=== PATIENT | female | born 1940 ===

== ENCOUNTER 2017-01-10 08:00 | Inpatient (IN) ==
[~2017-01-10 08:00] MED LIST: CefOXitin Inj 2 GM in Sodium Chloride 0.9% 100 ML IV ONE; LIDOCAINE W/ SODIUM BICARB 0.5 ML SYR SUBD ONE; Sodium Chloride 0.9% 250 ML IV ONE
[2017-01-10] MEDS ORDERED: fentaNYL Inj 250 MCG/5 ML VIAL ONE (08:07)
[2017-01-10] MEDS ORDERED: LIDOCAINE MPF 2% - 5 ML (20 MG/1 ML) ONE (08:07)
[2017-01-10] MEDS ORDERED: PROPOFOL 10 MG/1 ML (200 MG/20 ML) VIAL IV ONE (08:07)
[2017-01-10] MEDS ORDERED: MIDAZOLAM 5 MG/1 ML ONE (08:08)
[2017-01-10] MEDS ORDERED: KETAMINE 100 MG/1 ML - 5 ML ONE (08:08)
[2017-01-10] MEDS ORDERED: ROCURONIUM 10 MG/1 ML - 5 ML VIAL IVP ONE (08:10)
[2017-01-10] MEDS: Lactated Ringers 1,000 ML PRIMARY IV SCH ×2 (10:30→19:15)
[2017-01-10] MEDS ORDERED: BUPivacaine 0.5%/Epi Inj 50 ML VIAL ONE (10:48)
[2017-01-10] MEDS ORDERED: Sodium Chloride 0.9% 100 ML IV ONE (11:04)
[2017-01-10] MEDS ORDERED: ONDANSETRON 4 MG/2 ML VIAL ONE (11:46)
[2017-01-10] MEDS ORDERED: Acetaminophen 1000mg Inj 1,000 MG/100 ML VIAL IV ONE (11:46)
[2017-01-10] MEDS ORDERED: DEXAMETHASONE PF 10 MG/1 ML VIAL ONE (11:46)
[2017-01-10 11:48] LABS: BLOOD UREA NITROGEN 13 mg/dL (7-22); BUN/CREATININE RATIO 18.57 (6-20); SERUM ALBUMIN 3.8 g/dL (3.5-4.8)
[2017-01-10] MEDS ORDERED: LIDOCAINE HCL 2 % 10 ML JELLY URO-JECT TOPICAL ONE (12:25)
[2017-01-10] MEDS ORDERED: ePHEDrine Inj 50 MG/ML AMP ONE (12:27)
[2017-01-10] MEDS ORDERED: Lactated Ringers 1,000 ML PRIMARY IV ONE ×2 (12:36→13:21)
[2017-01-10] MEDS ORDERED: SUFENTANIL 50 MCG/1 ML ONE (12:50)
[2017-01-10] MEDS ORDERED: Sodium Chloride 0.9% vial 50 ML ONE (13:23)
[2017-01-10] MEDS ORDERED: BUPivacaine Liposome/PF (Exparel) Inj 20ml vial INFIL ONE (13:23)
[2017-01-10] MEDS ORDERED: SUGAMMADEX SODIUM 200 MG/2 ML VIAL IV ONE (13:56)
[2017-01-10] MEDS ORDERED: KETOROLAC 30 MG/1 ML VIAL ONE (13:57)
[2017-01-10] MEDS ORDERED: Nalbuphine Inj 20 MG/ML Ampule ONE (14:22)
[2017-01-10] MEDS ORDERED: NORMAL SALINE 10 ML SYRINGE FLUSH IVP PRN (14:36)
[2017-01-10] MEDS ORDERED: HYDROmorphone 2 MG/1 ML IVP PRN (14:36)
[2017-01-10] MEDS ORDERED: Prochlorperazine Edisylate Inj 10mg/2ml vial IVP PRN (14:36)
--- NOTE | 2017-01-10 14:37 | CRNA.PROGR ---
Anesthesia Time - - Start date: 01/10/17 End date: 01/10/17 - Procedure/Recovery Time Anesthesia : Time In: 12:09 Anesthesia : Time Out: 14:35 Anesthesia : Total Time: 146 - Total Anesthesia Time Total Anesthesia Time (minutes): 146 - Other Weight: 48.988 kg Height: 5 ft 1 in Body Mass Index (BMI): 20.4 Physical Status: P2 Anesthesia Type: General Anesthesia : ET
--- NOTE | 2017-01-10 14:38 | CRNA.PROGR ---
Anesthesia Recovery Phase I - Post Anesthesia Evaluation Patient's Condition on Arrival in Phase I: Stable Pain Level: 2
--- NOTE | 2017-01-10 15:14 | GEN.OPNOTE ---
Operative Note Surgery Date: 01/10/17 Preoperative Diagnosis: Sigmoid colon cancer Postoperative Diagnosis: Sigmoid colon cancer Procedure: Low anterior resection Surgeon: Nacho Pruitt MD It Business Analyst: Dustin Alcocer MD Anesthesia Provider: Macario Neri CRNA Anesthesia Type: General Estimated Blood Loss (mL): 300 Fluids: Lactated Ringer's 2400 mL. 2 g of Mefoxin given Pathology: Sigmoid colon sent Indications: Patient has biopsy-proven adenocarcinoma of the sigmoid colon. Measured 20 cm Findings: Patient had a circumferential cancer that was stuck to the right sidewall Operative Summary: Patient is brought in operative room. Placed supine position. Given general trach anesthesia. Then placed in dorsolithotomy position. Prepped draped sterile fashion. Only catheter was placed prior to prepping. Timeout performed per protocols. Midline skin incision was made through her previous midline incision. Hemostased electrocautery dissection to [place] tissue electrocautery anterior fascial sheath was opened electrocautery blunt dissection carried to the posterior sheath and the peritoneum and then the perineum was opened with electrocautery. We inspected there appeared to be no other abnormal pathology. Liver had no nodules. There is no abnormal pathology in the small bowel. There was a nodule seen within the epiploic fat of the left side of the colon. This was removed and sent as pathology. We then identified the lesion. There are take adhesions down of the right side of the colon to the sidewall of the abdominal wall. It is hard to tell this is previous surgery but did not appear to be direct extension of the tumor. It was not a good tissue plane. The right ureter was identified and make sure is out of harm's way. After mobilizing the colon we were able to then identify the ureter did not appear to be injured. We then divided the the sigmoid colon using a pursestring maker. Clamped the distal bowel and divided with a sharp dissection. We then clamped divided the mesenteric down to area below the tumor. This is definitely below the peritoneal reflection. We then I cleaned up the lateral margins and then the anterior margin stated mobilize the rectum. Then a TXA 60 staplers was used to divide the rectum. There we sized the colon to 33. A 31 EEA circumferential stapler was then used. The anvil was put into the proximal colon. Dr. Alcocer went below and dilated up the rectum and put the remainder the stapling device into the rectum. When trying to connect the rectum to the: We knows that the pursestring it came apart. I then freshened up the end of the proximal colon. Use a pursestring maker to reconstruct the pursestring. Put the anvil back and the proximal bowel and tied the pursestring. We connected the anvil to the stapler device. It was then fired and standard fashion. There are 2 complete rings. Did a sigmoidoscopy afterwards which showed good anastomosis and there was no air leak. We irrigated until clear. The midline fascia was closed with 0 Prolene continuous running suture. Skin reapproximated using vale. 240 mg of Exoprel was diluted with 50 mL of saline for total volume of 70 mL. This was infiltrated for postoperative pain control. Sterile dressings applied. Counts were correct. Patient transferred recovery room in stable condition Procedure Codes - Surgical Procedures Primary Surgical Procedure: [id number] : Colectomy, Coloproctostmy
[2017-01-10] MEDS ORDERED: CefOXitin Inj 2 GM in Sodium Chloride 0.9% 100 ML IV ONE (15:30)
[2017-01-10] MEDS ORDERED: ONDANSETRON 4 MG/2 ML VIAL IVP PRN (15:30)
[2017-01-10] MEDS: MORPHINE SULFATE 2 MG/1 ML IVP PRN (16:44)
[2017-01-10] MEDS: D5-1/2NS + 20mEq KCL 1,000 ML PRIMARY IV SCH (16:45)
[2017-01-10] MEDS: NORMAL SALINE 10 ML SYRINGE FLUSH IVP PRN (16:46)
--- NOTE | 2017-01-10 16:58 | CONSULT ---
Consult Note - Consult Consult Date: 01/10/17 Reason for Consult: PostOp Consulation : General Surgery Requesting Physician: Dr. Pruitt Primary Care Provider: MONICA HACKETT - History of Present Illness History of Present Illness: This is a 76 years old female with medical history significant for history of dementia, recently diagnosed with the adenocarcinoma of the sigmoid colon who came into the hospital to have surgery and she had low anterior resection done by Dr. Pruitt. The hospitalist service were consulted for management of medical issues. Patient is denying complaints. There is no abdominal pain, no chest pain, no shortness of breath, no nausea. Past Medical History Medical History: 1. History of dementia. 2. History of adenocarcinoma of the sigmoid colon status post resection Surgical History: History of hysterectomy and oophorectomy Family History: Reviewed an Not Pertinent Past Social History: Used to smoke, rarely drinks, no drugs. Lives in [place]. 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 Tobacco Use: Former Smoker In the Past 12 Months, Have Used or Abuse Any of the Following Substance: None Alcohol Use: Rarely Review of Systems - Review of Systems All Systems: Reviewed & No Additional Complaints Except as Stated Medication / Allergies Home Medications: Home Medications Medication Instructions Recorded Confirmed Type donepezil 10 mg tablet 10 mg PO QHS 12/18/16 01/10/17 History Lisinopril 10 mg PO PRN PRN 01/10/17 01/10/17 History Allergies/Adverse Reactions: Allergies 3 Allergy/AdvReac Type Severity Reaction Status Date / Time No Known Allergies Allergy Verified 01/10/17 06:43 Exam - Vitals Vital Signs: Vital Signs Temperature 98.0 F Pulse Rate 68 Respiratory Rate 18 Blood Pressure 148/94 Pulse Ox 93 Oxygen Flow Rate 1 Oxygen Delivery Method Nasal Cannula Height 5 ft 1 in Weight 108 lb - General General Appearance: No Acute Distress, Cooperative - Head Head Exam: Normal Inspection, Atraumatic - Eye Eye Exam: POSITIVE: Normal Appearance - ENT ENT Exam: POSITIVE: Normal Exam - Neck Neck Exam: Normal Inspection - Respiratory Respiratory Exam: POSITIVE: Clear to Auscultation - Bilaterally - Cardiovascular Cardiovascular Exam: POSITIVE: RRR - GI/Abdominal GI/Abdominal Exam: POSITIVE: Normal Bowel Sounds, Non Tender, Non Distended, Soft Additional GI/Abdominal Exam Details: Dressing applied to the incision site - Rectal Rectal Exam: POSITIVE: Deferred - External Exam: POSITIVE: Deferred Exam: POSITIVE: Deferred - Extremities Extremities Exam: POSITIVE: Normal Inspection - Back Back Exam: POSITIVE: Normal Inspection - Neurological Neurological Exam: POSITIVE: Alert, CN II-XII Intact, No Facial Droop, Speech Intact / Clear, Moves All Extremities Equally - Psychiatric Psychiatric Exam: POSITIVE: Normal Affect - Integumentary Integumentary Exam: POSITIVE: Normal Color Results - Labs CBC and BMP: 01/10/17 10:32 Assessment and Plan - Patient Problems (1) Adenocarcinoma of sigmoid colon Current Visit: No Status: Acute Comment: Status post anterior resection done today. Pain medication were already written for her. Anti-emetics also written for her. Per my discussion with Dr. Pruitt he will start her on heparin tomorrow for DVT prophylaxis. Code(s): C18.7 - Malignant neoplasm of sigmoid colon (2) History of dementia Current Visit: Yes Status: Chronic Comment: Continue Aricept Code(s): Z86.59 - Personal history of other mental and behavioral disorders
[2017-01-10] MEDS: Famotidine Inj 20 MG in Normal Saline Flush 10 ML IVP SCH (20:16)
[2017-01-10] MEDS: KETOROLAC 15 MG/1 ML VIAL IVP PRN (20:16)
[2017-01-10] MEDS: HEPARIN 5000 UNIT/1 ML SUBCUT SCH (20:16)
[2017-01-10] MEDS: CefOXitin Inj 2 GM in Sodium Chloride 0.9% 100 ML IV SCH (20:17)
[2017-01-10] MEDS: DONEPEZIL 5 MG TABLET PO SCH ×2 (20:17→21:51)
[2017-01-11] MEDS: D5-1/2NS + 20mEq KCL 1,000 ML PRIMARY IV SCH (02:50)
[2017-01-11] MEDS: MORPHINE SULFATE 2 MG/1 ML IVP PRN ×5 (02:53→18:55)
[2017-01-11] MEDS: NORMAL SALINE 10 ML SYRINGE FLUSH IVP PRN ×3 (02:55→08:35)
[2017-01-11] MEDS: HEPARIN 5000 UNIT/1 ML SUBCUT SCH ×3 (05:15→20:59)
[2017-01-11 06:43] LABS: BASOPHILS # (AUTO) 0 10*3/UL; BASOPHILS % (AUTO) 0 % (0-1); EOSINOPHILS # (AUTO) 0.01 10*3/UL; EOSINOPHILS % (AUTO) 0.1 % (0-8); Hematocrit [HCT] 31.9 % (37.0-47.0); Hemoglobin [HGB] 10.5 g/dL (12.0-16.0); LYMPHOCYTES # (AUTO) 1.62 10*3/uL; MEAN CORPUSCULAR HEMOGLOBIN 30.4 PG (27-31); MEAN CORPUSCULAR HGB CONC 32.9 g/dL (33-37); MEAN CORPUSCULAR VOLUME 92.5 FL (81-99); MEAN PLATELET VOLUME 9.9 FL (7.4-12.2); MONOCYTES # (AUTO) 0.73 10*3/UL (0.3-0.8); NEUTROPHILS # (AUTO) 5.69 10*3/UL; NEUTROPHILS % (AUTO) 70.5 % (50-80); RED BLOOD COUNT 3.45 10^6/uL (4.20-5.40)
[2017-01-11 07:18] LABS: PLATELET MORPHOLOGY COMMENT NORMAL MORPHOLOGY (NORM); RBC MORPHOLOGY COMMENT NORMAL MORPHOLOGY (NORM); WBC MORPHOLOGY COMMENT NORMAL MORPHOLOGY (NORM)
[2017-01-11] MEDS: Acetaminophen 1000mg Inj 1,000 MG/100 ML VIAL IV PRN (07:54)
[2017-01-11 07:57] LABS: BLOOD UREA NITROGEN 9 mg/dL (7-22)
[2017-01-11] MEDS: Famotidine Inj 20 MG in Normal Saline Flush 10 ML IVP SCH ×2 (08:35→20:54)
[2017-01-11] MEDS: CefOXitin Inj 2 GM in Sodium Chloride 0.9% 100 ML IV SCH (08:35)
--- NOTE | 2017-01-11 11:36 | PDOC(PROG) ---
Subjective Post Op Day: postop day 1 Pain Management: morphine, Toradol, Tylenol Franks Catheter: Yes Flatus: No Diet: NPO Ambulating: Yes Date and Time of Service: 01/11/2017 at 1135 Interval History: Patient states that she is doing fine having no problems. Objective : Data - Labs CBC and BMP: 01/11/17 05:55 01/11/17 05:55 - Vital Signs Vital Signs and I&O: Vital Signs - Last Taken Temperature 98.7 F 01/11/17 11:19 Pulse Rate 60 01/11/17 11:19 Respiratory Rate 18 01/11/17 11:19 Blood Pressure 96/64 01/11/17 11:19 Pulse Ox 98 01/11/17 11:19 Intake and Output (24hr x 4 totals) 01/09/17 01/10/17 01/11/17 01/12/17 05:59 05:59 05:59 05:59 Intake Total 3893 / 3893 Output Total 1350 / 1350 650 / 650 Balance 2543 / 2543 -650 / -650 Objective : Exam - General General Appearance: No Acute Distress, Cooperative - Head Head Exam: Normocephalic - Eye Eye Exam: PERRL, EOMI - Respiratory Respiratory Exam: Clear to Auscultation - Bilaterally, Breathing Non Labored - GI/Abdominal GI/Abdominal Exam: Normal Bowel Sounds, Non Tender, Non Distended, Soft Assessment and Plan - Patient Problems (1) Adenocarcinoma of sigmoid colon Current Visit: No Status: Acute Code(s): C18.7 - Malignant neoplasm of sigmoid colon (2) History of colectomy Current Visit: No Status: Acute Code(s): Z90.49 - Acquired absence of other specified parts of digestive tract - Assessment / Plan Additional Assessment/Plan Details: At present time patient is doing very well. Will stop IV antibiotics. Patient is to have the Franks catheter removed today. Also will start on clear liquid diet
--- NOTE | 2017-01-11 13:34 | PDOC(PROG) ---
Interval History: No complaints doing well Objective : Data - Labs CBC and BMP: 01/11/17 05:55 01/11/17 05:55 Objective : Exam - General General Appearance: Cooperative - Respiratory Respiratory Exam: Clear to Auscultation - Bilaterally, Breathing Non Labored, Normal To Percussion - Cardiovascular Cardiovascular Exam: RRR, No Murmur, No Clicks - GI/Abdominal GI/Abdominal Exam: Non Tender, Non Distended, Soft - Extremities Extremities Exam: No Clubbing Present, No Edema Present, No Cyanosis Present Assessment and Plan - Patient Problems (1) Hypertension Current Visit: Yes Status: Acute Comment: Stable continue current medication okay to be discharged home from the hospitalist standpoint Code(s): I10 - Essential (primary) hypertension (2) Adenocarcinoma of sigmoid colon Current Visit: No Status: Acute Comment: Deferred to general surgery Code(s): C18.7 - Malignant neoplasm of sigmoid colon
--- NOTE | 2017-01-11 15:17 | CRNA.PROGR ---
Anesthesia Note - Progress Notes Anesthesia Progress Note: Pt is lying in bed, currently comfortable, pt mental status is described as more confused today, and agitated if pain is not controlled. Otherwise pt is doing as expected. no residual issues from general anesthetic. Current VS are stable. Vital Signs - Last Taken Temperature 98.7 F 01/11/17 11:19 Pulse Rate 60 01/11/17 11:19 Respiratory Rate 18 01/11/17 11:19 Blood Pressure 96/64 01/11/17 11:19 Pulse Ox 98 01/11/17 11:19
[2017-01-11] MEDS: D5-1/2NS + 10mEq KCL 1,000 ML PRIMARY IV SCH (17:17)
[2017-01-11] MEDS: KETOROLAC 15 MG/1 ML VIAL IVP PRN (18:54)
[2017-01-11] MEDS: DONEPEZIL 5 MG TABLET PO SCH (20:59)
[2017-01-11] MEDS: KETOROLAC 15 MG/1 ML VIAL IVP SCH (21:00)
[2017-01-12] MEDS: KETOROLAC 15 MG/1 ML VIAL IVP SCH ×4 (01:08→20:09)
[2017-01-12] MEDS: MORPHINE SULFATE 2 MG/1 ML IVP PRN ×3 (01:08→13:04)
[2017-01-12] MEDS: HEPARIN 5000 UNIT/1 ML SUBCUT SCH ×3 (04:13→20:09)
[2017-01-12] MEDS: Famotidine Inj 20 MG in Normal Saline Flush 10 ML IVP SCH ×2 (09:18→20:10)
--- NOTE | 2017-01-12 10:11 | PDOC(PROG) ---
Subjective Post Op Day: postop day 2 Pain Management: Toradol, acetaminophen, local anesthetic Franks Catheter: No Diet: Clear Liquids Date and Time of Service: 01/12/2017 at 1010 Interval History: Patient states she's having no problems. Objective : Data - Labs CBC and BMP: 01/11/17 05:55 01/11/17 05:55 - Vital Signs Vital Signs and I&O: Vital Signs - Last Taken Temperature 98 F 01/12/17 09:03 Pulse Rate 80 01/12/17 09:03 Respiratory Rate 16 01/12/17 09:03 Blood Pressure 122/84 01/12/17 09:03 Pulse Ox 96 01/12/17 09:03 Intake and Output (24hr x 4 totals) 01/10/17 01/11/17 01/12/17 01/13/17 05:59 05:59 05:59 05:59 Intake Total 3893 / 3893 470 / 470 Output Total 1350 / 1350 1200 / 1200 Balance 2543 / 2543 -730 / -730 Objective : Exam - General General Appearance: No Acute Distress, Cooperative - Respiratory Respiratory Exam: Clear to Auscultation - Bilaterally, Breathing Non Labored - Cardiovascular Cardiovascular Exam: RRR - GI/Abdominal GI/Abdominal Exam: Normal Bowel Sounds, Non Tender, Non Distended, Soft Assessment and Plan - Patient Problems (1) Adenocarcinoma of sigmoid colon Current Visit: No Status: Acute Code(s): C18.7 - Malignant neoplasm of sigmoid colon (2) History of colectomy Current Visit: No Status: Acute Code(s): Z90.49 - Acquired absence of other specified parts of digestive tract - Assessment / Plan Additional Assessment/Plan Details: Overall think the patient is doing very well. We'll advance her diet to full liquid diet. Await return of bowel function. Will check a CBC base metabolic panel and magnesium in the a.m. A saline lock her IV.
--- NOTE | 2017-01-12 11:35 | PDOC(PROG) ---
Interval History: Doing well today patient looks much better more oriented Objective : Data - Labs CBC and BMP: 01/11/17 05:55 01/11/17 05:55 Objective : Exam - Respiratory Respiratory Exam: Clear to Auscultation - Bilaterally, Breathing Non Labored, Normal To Percussion - Cardiovascular Cardiovascular Exam: RRR, No Murmur, No Clicks Assessment and Plan - Patient Problems (1) Hypertension Current Visit: Yes Status: Acute Comment: Stable at present time we'll still hold the lisinopril Code(s): I10 - Essential (primary) hypertension (2) Adenocarcinoma of sigmoid colon Current Visit: No Status: Acute Code(s): C18.7 - Malignant neoplasm of sigmoid colon
[2017-01-12] MEDS: Acetaminophen 1000mg Inj 1,000 MG/100 ML VIAL IV PRN (16:35)
[2017-01-12] MEDS: DONEPEZIL 5 MG TABLET PO SCH (20:09)
[2017-01-13] MEDS: KETOROLAC 15 MG/1 ML VIAL IVP SCH ×2 (01:19→07:49)
[2017-01-13] MEDS: D5-1/2NS + 10mEq KCL 1,000 ML PRIMARY IV SCH (03:54)
[2017-01-13] MEDS: HEPARIN 5000 UNIT/1 ML SUBCUT SCH (05:20)
[2017-01-13 06:40] LABS: BASOPHILS # (AUTO) 0.02 10*3/UL; BASOPHILS % (AUTO) 0.5 % (0-1); EOSINOPHILS # (AUTO) 0.04 10*3/UL; Hematocrit [HCT] 30.2 % (37.0-47.0); Hemoglobin [HGB] 9.8 g/dL (12.0-16.0); LYMPHOCYTES # (AUTO) 0.92 10*3/uL; MEAN CORPUSCULAR HEMOGLOBIN 30.2 PG (27-31); MEAN CORPUSCULAR HGB CONC 32.5 g/dL (33-37); MEAN CORPUSCULAR VOLUME 92.9 FL (81-99); MEAN PLATELET VOLUME 9.3 FL (7.4-12.2); MONOCYTES # (AUTO) 0.27 10*3/UL (0.3-0.8); MONOCYTES % (AUTO) 6.7 % (5-15); NEUTROPHILS # (AUTO) 2.79 10*3/UL; NEUTROPHILS % (AUTO) 68.6 % (50-80); RED BLOOD COUNT 3.25 10^6/uL (4.20-5.40)
[2017-01-13 06:44] LABS: PLATELET MORPHOLOGY COMMENT NORMAL MORPHOLOGY (NORM); RBC MORPHOLOGY COMMENT NORMAL MORPHOLOGY (NORM); WBC MORPHOLOGY COMMENT NORMAL MORPHOLOGY (NORM)
[2017-01-13 06:53] LABS: BLOOD UREA NITROGEN 7 mg/dL (7-22); MAGNESIUM 1.8 mg/dL (1.6-2.4)
[2017-01-13] MEDS: Famotidine Inj 20 MG in Normal Saline Flush 10 ML IVP SCH (08:49)
--- NOTE | 2017-01-13 11:08 | PDOC(PROG) ---
Subjective Post Op Day: postoperative day 3 Flatus: No Diet: full liquid diet Date and Time of Service: January 13 2017 at 1110 Interval History: Patient states she's having no problems. Still has not had a bowel movement or passed flatus Objective : Data - Labs CBC and BMP: 01/13/17 06:30 01/13/17 06:30 - Vital Signs Vital Signs and I&O: Vital Signs - Last Taken Temperature 98.9 F 01/13/17 07:53 Pulse Rate 89 01/13/17 07:53 Respiratory Rate 18 01/13/17 07:53 Blood Pressure 131/92 01/13/17 07:53 Pulse Ox 92 01/13/17 07:53 Intake and Output (24hr x 4 totals) 01/11/17 01/12/17 01/13/17 01/14/17 05:59 05:59 05:59 04:59 Intake Total 3893 / 3893 470 / 470 1120 / 1120 120 / 120 Output Total 1350 / 1350 1200 / 1200 Balance 2543 / 2543 -730 / -730 1120 / 1120 120 / 120 Objective : Exam - General General Appearance: No Acute Distress, Cooperative - Neck Neck Exam: Full ROM - Respiratory Respiratory Exam: Clear to Auscultation - Bilaterally, Breathing Non Labored - Cardiovascular Cardiovascular Exam: RRR - GI/Abdominal GI/Abdominal Exam: Normal Bowel Sounds, Non Tender, Non Distended, Soft Assessment and Plan - Patient Problems (1) Adenocarcinoma of sigmoid colon Current Visit: No Status: Acute Code(s): C18.7 - Malignant neoplasm of sigmoid colon (2) History of colectomy Current Visit: No Status: Acute Code(s): Z90.49 - Acquired absence of other specified parts of digestive tract - Assessment / Plan Additional Assessment/Plan Details: Overall patient is doing very well. She is tolerating full liquid diet. She still has bowel sounds but has not started passing flatus are having a bowel movement. Await return of bowel function. Will switch over to oral pain medication. Her platelets are started declined therefore she I don't think she needs be on heparin anymore continue SCDs.
[2017-01-13] MEDS: HYDROcodone-APAP 5 MG -325 MG TABLET PO PRN ×3 (11:39→22:55)
[2017-01-13] MEDS: DONEPEZIL 5 MG TABLET PO SCH (20:48)
[2017-01-13] MEDS: MORPHINE SULFATE 2 MG/1 ML IVP PRN (23:35)
[2017-01-14] MEDS: MORPHINE SULFATE 2 MG/1 ML IVP PRN (06:40)
[2017-01-14] MEDS: HYDROcodone-APAP 5 MG -325 MG TABLET PO PRN ×4 (06:41→23:15)
[2017-01-14] MEDS: NORMAL SALINE 10 ML SYRINGE FLUSH IVP PRN (06:41)
[2017-01-14 06:46] LABS: Hemoglobin [HGB] 10.3 g/dL (12.0-16.0); MEAN CORPUSCULAR HEMOGLOBIN 30.2 PG (27-31); MEAN CORPUSCULAR HGB CONC 33.2 g/dL (33-37); MEAN CORPUSCULAR VOLUME 90.9 FL (81-99); RED BLOOD COUNT 3.41 10^6/uL (4.20-5.40)
[2017-01-14 07:00] LABS: BLOOD UREA NITROGEN 11 mg/dL (7-22)
--- NOTE | 2017-01-14 08:00 | PDOC(PROG) ---
Subjective Post Op Day: postop day 4 Pain Management: PO Franks Catheter: No Flatus: Yes Diet: Regular Date and Time of Service: 01/14/2017 at 9 AM Interval History: Patient has no complaints today. Nurses report that she passed flatus yesterday. Patient is tolerating diet. Objective : Data - Labs CBC and BMP: 01/14/17 06:40 01/14/17 06:40 - Vital Signs Vital Signs and I&O: Vital Signs - Last Taken Temperature 97.9 F 01/14/17 06:43 Pulse Rate 88 01/14/17 06:43 Respiratory Rate 16 01/14/17 06:50 Blood Pressure 128/83 01/14/17 06:43 Pulse Ox 94 01/14/17 06:43 Intake and Output (24hr x 4 totals) 01/12/17 01/13/17 01/14/17 01/15/17 06:59 06:59 05:59 05:59 Intake Total Output Total 250 / 250 Balance -250 / -250 Objective : Exam - General General Appearance: No Acute Distress - Respiratory Respiratory Exam: Clear to Auscultation - Bilaterally, Breathing Non Labored - GI/Abdominal GI/Abdominal Exam: Normal Bowel Sounds, Non Tender, Non Distended, Soft ( Incision is clean and dry) Assessment and Plan - Patient Problems (1) Adenocarcinoma of sigmoid colon Current Visit: No Status: Acute Code(s): C18.7 - Malignant neoplasm of sigmoid colon (2) History of colectomy Current Visit: No Status: Acute Code(s): Z90.49 - Acquired absence of other specified parts of digestive tract - Assessment / Plan Additional Assessment/Plan Details: Overall patient is doing very well. Will advance diet to regular diet. Platelets have corrected since stopping heparin. Continues SCDs. Weight return of bowel function before patient is discharged home.
[2017-01-14] MEDS: DONEPEZIL 5 MG TABLET PO SCH (20:35)
[2017-01-15] MEDS: HYDROcodone-APAP 5 MG -325 MG TABLET PO PRN (04:46)
[2017-01-15 08:11] VITALS: BP 118/81; RESP 17; TEMP 97.4; O2SAT 95
--- NOTE | 2017-01-15 10:09 | DCSUMMARY ---
Discharge Summary Admit Date: 01/10/17 Discharge Date: 01/15/17 Admitting Diagnosis: sigmoid colon cancer Discharge Diagnosis: Sigmoid colon cancer Primary Surgery and Date: 01/10/2017 patient when the low anterior resection Hospital Course: Patient underwent low anterior resection 01/10/2017 postoperatively she did very well. She was advanced on her diet. She had a bowel movement on January 12. Her diet was advanced on the and she is able to be discharged on the . Exam - Vitals Vital Signs: Vital Signs Temperature 97.4 F Temperature Source Temporal Artery Scan Pulse Rate [Apical] 88 Pulse Rate [Pulse Oximeter] 79 Pulse Rate 60 Respiratory Rate 17 Blood Pressure [Left Arm] 118/81 Blood Pressure 148/94 Pulse Ox 95 Oxygen Flow Rate 1 Oxygen Delivery Method Room Air Height 5 ft 1 in Weight 105 lb 6.4 oz - General General Appearance: No Acute Distress, Cooperative - Neck Neck Exam: Normal Inspection - Respiratory Respiratory Exam: POSITIVE: Clear to Auscultation - Bilaterally, Breathing Non Labored - Cardiovascular Cardiovascular Exam: POSITIVE: RRR - GI/Abdominal GI/Abdominal Exam: POSITIVE: Normal Bowel Sounds, Non Tender, Non Distended, Soft Patient Problems - Patient Problem List (1) Adenocarcinoma of sigmoid colon Current Visit: No Status: Acute Code(s): C18.7 - Malignant neoplasm of sigmoid colon Category: Medical (2) History of colectomy Current Visit: No Status: Acute Code(s): Z90.49 - Acquired absence of other specified parts of digestive tract Category: Surgical
== END 2017-01-15 10:43 | disposition home or self-care (01) | DRG 331 ==
LOC: OPS 09:47 → EDSTATUS 11:45 → MED/SURG 15:42
PROVIDERS: ADMIT Surgery; ATTEND Surgery

== ENCOUNTER 2018-03-21 12:42 | Inpatient (IN) ==
[2018-03-21] MEDS ORDERED: Sodium Chloride 0.9% 1,000 ML PRIMARY IV ONE (14:04)
[2018-03-21 14:23] LABS: BASOPHILS # (AUTO) 0.02 10*3/UL; BASOPHILS % (AUTO) 0.2 % (0-1); EOSINOPHILS % (AUTO) 3.4 % (0-8); Hematocrit [HCT] 30.3 % (37.0-47.0); Hemoglobin [HGB] 8.9 g/dL (12.0-16.0); MEAN CORPUSCULAR HEMOGLOBIN 20.6 PG (27-31); MEAN CORPUSCULAR HGB CONC 29.4 g/dL (33-37); MEAN CORPUSCULAR VOLUME 70.3 FL (81-99); MONOCYTES # (AUTO) 0.67 10*3/UL (0.3-0.8); MONOCYTES % (AUTO) 7.7 % (5-15); NEUTROPHILS # (AUTO) 5.82 10*3/UL; NEUTROPHILS % (AUTO) 66.7 % (50-80); RED BLOOD COUNT 4.31 10^6/uL (4.20-5.40)
[2018-03-21 14:28] LABS: PLATELET MORPHOLOGY COMMENT NORMAL MORPHOLOGY (NORM); RBC MORPHOLOGY COMMENT NORMAL MORPHOLOGY (NORM); WBC MORPHOLOGY COMMENT NORMAL MORPHOLOGY (NORM)
[2018-03-21 14:35] LABS: BLOOD UREA NITROGEN 14 mg/dL (7-22); SERUM ALBUMIN 3.5 g/dL (3.5-4.8)
[2018-03-21 14:41] LABS: BILIRUBIN,URINE SMALL (NEG); CLARITY,URINE CLEAR (CLEAR); COLOR,URINE YELLOW (Y); GLUCOSE, URINE (UA) NEGATIVE (NEG); OCCULT BLOOD,URINE NEGATIVE (NEG); PH,URINE 5.5 (5.0-8.5); PROTEIN,URINE TRACE mg/dl (NEG)
[2018-03-21 14:44] LABS: URINE SAMPLE TYPE VOIDED SPECIMEN; URINE SPECIFIC GRAVITY - MAN 1.029
--- NOTE | 2018-03-21 15:17 | PDOC ---
General Adult HPI - General Chief Complaint: Abdomen Pain Stated Complaint: stomach pain Date Seen by Provider: 03/21/18 Time Seen by Provider: 13:50 Source: POSITIVE: Patient Exam Limitations: POSITIVE: Other (Patient does have some underlying dementia and is a poor historian) Nurse's Notes Reviewed & Considered: Yes - History of Present Illness Initial Comment: The patient is a 77-year-old female who is brought to the emergency department by her son. Both her and her son state they don't know exactly why the patient is here. Apparently the patient has had some increased weakness and possibly some increased confusion over the past several weeks which has been worsening the past couple of days. She also apparently has been feeling cold the past couple of days. She does have a history of underlying dementia. She had seen her primary care provider yesterday in [place]. Her rating clerk felt like she was worse today and that was the reason for bringing her here to the emergency department. The patient states that there is nothing wrong with her. She does have a history of colon cancer which was resected in [address] Pruitt. It does not sound like she has had any significant follow-up since then although the patient told me that her colon cancer was "a long time ago, like around 06". The patient denies any current headache, chest pain, cough or shortness of breath, abdominal pain, recent vomiting or diarrhea, urinary symptoms. Have you received a tetanus shot in the past 10 years?: No - Patient Home Medications Home Medications: Home Medications donepezil 5 mg tablet 5 mg PO BID tab 05/14/17 - Patient Allergies Allergies/Adverse Reactions: Allergies Allergy/AdvReac Type Severity Reaction Status Date / Time No Known Allergies Allergy Verified 03/21/18 13:41 Past Medical History - heen HEENT History: Dentures/Partials Cardiovascular History: Hypertension Additional Cardiovasular History: 01/09/17 Pt had some high blood pressure in morning, caregiver call PCP and was told to give one 10mg Lisinopril. B/P returned to normal and good today Respiratory History: Denies History Gastrointestinal History: Other (please comment) Additional Gastrointestinal History: Colon CA Genitourinary History: Denies History Endocrine History: Denies History Musculoskeletal History: Denies History Prosthesis or Implant: No Neurological History: Dementia, Motion Sickness, Frequent Headaches Additional Neurological History: MEMORY LOSS Blood Disorders: Denies History Psychiatric History: Denies History History of Sexually Transmitted Diseases: No Female Reproductive History: Hysterectomy Cancer History: Colon In Past Year Been Physically Harmed or Verbally Threatened: No History of MDRO: No History of Other Communicable Diseases: No Tobacco Use: Former Smoker In the Past 12 Months, Have Used or Abuse Any Substance: None Previous Surgical History: Yes Type / Date of Surgery: HYST/Colonoscopy/COLECTOMY Anesthesia Reactions: No Malignant Hyperthermia: No Significant Family History: No pertinent family hx Past Medical History Reviewed: Reviewed - No Changes ROS - Limitations ROS Limitations: No Limitations Constitution: REPORTS: Chills Cardiovascular: DENIES: Chest Pain Respiratory: DENIES: Cough Non Productive, Cough Productive, Shortness Of Breath Neurological: DENIES: Headache, Numbness, Weakness Gastrointestinal: REPORTS: Constipation. DENIES: Abdominal Pain, Nausea, Vomitting, Diarrhea, Black Stools, Bloody Stools Musculoskeletal: REPORTS: Denies MS Symptoms Genitourinary: DENIES: Dysuria, Flank Pain Eyes: REPORTS: Denies Symptoms ENT: REPORTS: Denies Symptoms Skin: DENIES: Rash General Adult Exam - General Appearance General Appearance: POSITIVE: Alert, Cooperative, No Acute Distress - HEENT HEENT: POSITIVE: Head Inspection Nml, Eyes Inspection Nml, Ears Inspection Nml, Nose Inspection Nml, Pharynx Inspect. Nml - Neck Neck: POSITIVE: Normal Inspection. NEGATIVE: Lymphadenopathy - Respiratory Respiratory: POSITIVE: No Respiratory Distress, Breath Sounds Normal - Cardiovascular Cardiovascular: POSITIVE: Regular Rate & Rhythm, No Murmur - Abdomen Abdomen: Soft: (All Quadrants), Denies Tenderness: (All Quadrants), No Guarding: (All Quadrants), No Palpable Pulse: (All Quadrants), No [place]pabale Mass: (All Quadrants), No Distention: (All Quadrants) - Skin Skin: POSITIVE: Normal Color, No Rash - Extremities Extremity: Normal ROM: (All Extremities), Normal Inspection: (All Extremities) - Neurological / Psychological Neurological: POSITIVE: Oriented X3, operations technician Normal As Tested, Motor Normal, Sensation Normal General Adult Progress - Results Reviewed by me Xrays/CTs/US Reviewed by me: Yes Discussed with Radiologist: Yes Radiology Findings: CT scan of the abdomen and pelvis with IV contrast reveals some borderline wall thickening in the rectum with some questionable associated inflammatory change per radiologist. Lab Results Reviewed by Me: Yes Lab Results:: Laboratory Results 03/21/18 03/21/18 03/21/18 14:20 14:20 14:20 WBC 8.73 RBC 4.31 Hgb 8.9 L Hct 30.3 L MCV 70.3 L MCH 20.6 L MCHC 29.4 L RDW Std Deviation 45.7 RDW Coeff of Nanda 18.4 H Plt Count 307 MPV 9.0 Immature Gran % (Auto) 0.2 Neut % (Auto) 66.7 Lymph % (Auto) 21.8 [place] % (Auto) 7.7 Eos % (Auto) 3.4 Baso % (Auto) 0.2 Immature Gran # (Auto) 0.02 Neut # (Auto) 5.82 Lymph # (Auto) 1.90 [place] # (Auto) 0.67 Eos # (Auto) 0.30 Baso # (Auto) 0.02 WBC Morphology Comment Normal morphology Plt Morphology Comment Normal morphology RBC Morph Comment Normal morphology Sodium Potassium Chloride Carbon Dioxide Anion Gap BUN Creatinine BUN/Creatinine Ratio Glucose Calculated Osmolality Lactic Acid 1.1 Calcium Magnesium 2.3 Total Bilirubin AST ALT Alkaline Phosphatase C-Reactive Protein 1.7 H Total Protein Albumin Globulin Albumin/Globulin Ratio TSH Ur Collection Type Urine Color Urine Clarity Urine pH Ur Specific [place] U Specif Grav (Refrac) Urine Protein Urine Glucose (UA) Urine Ketones Urine Occult Blood Urine Nitrate Urine Bilirubin Urine Urobilinogen Ur Leukocyte Esterase Ur Culture Indicated? Blood Type Antibody Screen Crossmatch 03/21/18 03/21/18 03/21/18 14:20 14:35 15:15 WBC RBC Hgb Hct MCV MCH MCHC RDW Std Deviation RDW Coeff of Nanda Plt Count MPV Immature Gran % (Auto) Neut % (Auto) Lymph % (Auto) [place] % (Auto) Eos % (Auto) Baso % (Auto) Immature Gran # (Auto) Neut # (Auto) Lymph # (Auto) [place] # (Auto) Eos # (Auto) Baso # (Auto) WBC Morphology Comment Plt Morphology Comment RBC Morph Comment Sodium 138 Potassium 3.5 L Chloride 107 Carbon Dioxide 21 L Anion Gap 10 BUN 14 Creatinine 0.8 BUN/Creatinine Ratio 17.50 Glucose 101 Calculated Osmolality 286.0 Lactic Acid Calcium 8.1 L Magnesium Total Bilirubin 0.8 AST 17 ALT 15 Alkaline Phosphatase 75 C-Reactive Protein Total Protein 6.0 L Albumin 3.5 Globulin 2.5 Albumin/Globulin Ratio 1.40 TSH 1.24 Ur Collection Type Voided specimen Urine Color Yellow Urine Clarity Clear Urine pH 5.5 Ur Specific [place] >=1.030 U Specif Grav (Refrac) 1.029 Urine Protein Trace Urine Glucose (UA) Negative Urine Ketones Trace A Urine Occult Blood Negative Urine Nitrate Negative Urine Bilirubin Small Urine Urobilinogen 2.0 Ur Leukocyte Esterase Negative Ur Culture Indicated? Culture not set Blood Type Antibody Screen Crossmatch 03/21/18 15:49 WBC RBC Hgb Hct MCV MCH MCHC RDW Std Deviation RDW Coeff of Nanda Plt Count MPV Immature Gran % (Auto) Neut % (Auto) Lymph % (Auto) [place] % (Auto) Eos % (Auto) Baso % (Auto) Immature Gran # (Auto) Neut # (Auto) Lymph # (Auto) [place] # (Auto) Eos # (Auto) Baso # (Auto) WBC Morphology Comment Plt Morphology Comment RBC Morph Comment Sodium Potassium Chloride Carbon Dioxide Anion Gap BUN Creatinine BUN/Creatinine Ratio Glucose Calculated Osmolality Lactic Acid Calcium Magnesium Total Bilirubin AST ALT Alkaline Phosphatase C-Reactive Protein Total Protein Albumin Globulin Albumin/Globulin Ratio TSH Ur Collection Type Urine Color Urine Clarity Urine pH Ur Specific [place] U Specif Grav (Refrac) Urine Protein Urine Glucose (UA) Urine Ketones Urine Occult Blood Urine Nitrate Urine Bilirubin Urine Urobilinogen Ur Leukocyte Esterase Ur Culture Indicated? Blood Type O POSITIVE Antibody Screen Negative Crossmatch See Detail CBC and BMP: 03/21/18 21:52 03/21/18 14:20 - Patient's Progress MDM / ED Course: On arrival to the emergency department she was running a low-grade fever with a temperature of 100.4. In addition her blood pressure was on the low side at 85 systolic. She was not tachycardic. Because of this however an IV was established and she did receive 1 L bolus of normal saline, blood cultures and lactate were drawn with initial IV start and her lactate was normal. Blood work reveals a normal white count and mildly elevated CRP at 1.7. Urinalysis shows concentrated urine with small amount of ketones with no obvious sign of infection. The patient is anemic with a hemoglobin of 8.9. The last time it had been checked here was in January 2017 at which time it was 10.3. This was around the time of her colon surgery. Shortly after arrival here her blood pressure at one point dipped to 75 systolic. After administration of fluids her pressure came up into the upper 90s to 100 systolic. Rectal exam was performed and revealed an external hemorrhoid and heme positive stool. I did discuss the patient with Dr. Kincaid who recommended admission to the hospitalist service and he stated he would consult on the patient. He did recommend sending a CEA level secondary to her history of colon cancer. I discussed the patient with Dr. Mendoza and he recommended CT the abdomen and pelvis. This was performed and show some borderline thickening of the rectum with some questionable perirectal inflammatory change, no other acute findings per radiologist. This was discussed with Dr. Mendoza. The patient will likely be treated for possible diverticular disease and will be monitored here in the hospital. - Consult Counseled: POSITIVE: Patient, Family, RE: Lab Results, RE: Radiology Results, RE: DX Patient Care Time - Estimated PCT Patient Care Time (In Minutes): 45 Vital Signs - VS Reviewed Vital Signs Reviewed: Yes Discharge Clinical Impression: Guaiac + stool, Adenocarcinoma of sigmoid colon, History of dementia, Cancer of sigmoid colon Anemia Qualifiers: Anemia type: unspecified type Qualified Code(s): D64.9 - Anemia, unspecified Hypotension Qualifiers: Hypotension type: unspecified hypotension type Qualified Code(s): I95.9 - Hypotension, unspecified Discharge Disposition: Admit to Inpatient Condition: Fair Date Decision to Admit to Inpatient: 03/22/18 Time Decision to Admit to Inpatient: 18:00
[2018-03-21] MEDS ORDERED: PANTOPRAZOLE IV 40 MG VIAL IVP ONE (15:19)
--- NOTE | 2018-03-21 16:05 | DI ---
XR CXR 1VW 03/21/2018 3:11 PM HISTORY: [facility] [place]fever Comparison: None. Findings: A single AP view of the chest demonstrates normal aeration without focal consolidation. The re is no pneumothorax or pleural effusion. The cardiomediastinal silhouette is normal in size with at heromatous calcifications in the arch of the tortuous thoracic aorta. The osseous structures are nota ble for degenerative changes of the left acromioclavicular joint and spine. Impression: No radiographic evidence of acute cardiopulmonary process.
--- NOTE | 2018-03-21 17:45 | DI ---
CT Abdomen/Pelvis W Contrast 03/21/2018 4:11 PM History: [facility] [place] ^anemia, fever Comparison: 11/21/2016. Technique: Imaging was performed with a multi-detector CT scanner. Data acquisition was obtained from the dome of the diaphragm through the pubic symphysis without oral contrast and after the uneventful administration of 75 mL of Isovue intravenous contrast material. Multiplanar reformations were perfo rmed. Findings: There is bibasilar atelectasis versus scar. There are 4 and 5 mm pulmonary nodules in the right middl e lobe. There is a subcentimeter hypoattenuating lesion in the upper pole of the left kidney, too small to ch aracterize. There is normal CT appearance of the liver, gallbladder, adrenal glands, spleen, right ki dney, and pancreas. There is a surgical anastomosis at the level of the rectosigmoid junction. Border line wall thickening of the incompletely distended rectum beyond the level of the anastomosis is note d. There may be perirectal fat stranding. There is no free intraperitoneal air or fluid. No abdominop elvic lymphadenopathy is present. Vascular structures are intact with scattered atheromatous aortic a nd coronary artery calcifications. The uterus is absent. The adnexa are unremarkable, though better e valuated with pelvic ultrasound. There is a small fat-containing left inguinal hernia. There is multilevel degenerative disc disease with grade 1 anterolisthesis of L4 on L5. There is newman sitional lumbar anatomy with bilateral L5/S1 pseudoarthroses. Impression: 1. There is borderline thickening of the wall of the incompletely distended rectum with questionable perirectal fat stranding beyond the level of the surgical anastomosis. There is a nonspecific finding that could represent an infectious or inflammatory etiology in the correct clinical setting. Followu p to resolution is recommended. 2. Subcentimeter hypoattenuating lesion in the upper pole of the left kidney, too small to characteri ze.. 3. Right middle lobe pulmonary nodules, the largest measuring 5 mm. Fleischner Society 2017 guideline s for management of incidentally detected pulmonary nodules is as follows: Multiple solid lung nodules less than 6 mm: Low risk: No routine follow-up. High risk: Optional CT at 12 months.
[2018-03-21] MEDS ORDERED: Sodium Chloride 0.9% 2,000 ML PRIMARY IV ONE (18:18)
[2018-03-21] MEDS ORDERED: ONDANSETRON 4 MG/2 ML VIAL IV PRN (18:18)
[2018-03-21] MEDS ORDERED: LIDOCAINE W/ SODIUM BICARB 0.5 ML SYR SUBD PRN (18:18)
--- NOTE | 2018-03-21 18:47 | PDOC ---
HPI - History of Present Illness Date of Service: 03/21/18 Time of Service: 18:42 History of Present Illness: This very pleasant but advanced dementia 77-year-old female who presents completely by her son today from [place], [place]. Apparently, at her assisted living, the patient was found to be ill today. Details of that illness and the symptoms are not known and the patient has no memory or recall of those events. The patient's son stated that the caregivers at the assisted living called him and told him that the patient needed evaluation for being ill and that she had had some anemia discovered yesterday on some routine blood work. Patient came into the emergency room for evaluation, was found to have a Hemoccult positive stool, and was sent here for further evaluation. Upon arrival here, patient had a temperature 100.5, was hypotensive and required IV fluids of which she responded to systolics are now in the 110s. The patient has no symptoms of co ugh, nausea or vomiting, diarrhea, or other infectious symptoms. She does feel chilled. Blood cultures were drawn in the emergency room and are pending. Chest x-ray was negative for pneumonia. Urinalysis was negative for urinary tract infection. On my exam she did not have any meningeal signs. She was minimally tender on abdominal exam which may suggest possible issues there, and CT scan of the abdomen and pelvis with contrast showed some mild perirectal anastomotic stranding that may or may not be goodwill representative of an inflammatory process. Past Medical History Medical History: 1. Alzheimer's dementia. 2. History of adenocarcinoma of the sigmoid colon status post resection Surgical History: History of hysterectomy and oophorectomy Family History: Reviewed an Not Pertinent Pertinent Family History: Patient does not recall how her parents passed on. History compromised by dementia Past Social History: Used to smoke, rarely drinks, no drugs. Lives in [place]. 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 Her son is her power of attorn halley. Tobacco Use: Former Smoker In the Past 12 Months, Have Used or Abuse Any of the Following Substance: None Alcohol Use: Rarely Medication / Allergies Home Medications: Home Medications Medication Instructions Recorded Confirmed Type donepezil 5 mg tablet 5 mg PO BID tab 05/14/17 03/21/18 History Allergies/Adverse Reactions: Allergies Allergy/AdvReac Type Severity Reaction Status Date / Time No Known Allergies Allergy Verified 03/21/18 13:41 Review of Systems - Review of Systems ROS Unobtainable: Due to Mental Status (I cannot obtain an adequate review syst ems due to dementia) Exam - Vitals Vital Signs: Vital Signs Temperature 100.5 F Temperature Source Temporal Artery Scan Pulse Rate [Pulse Oximeter] 77 Respiratory Rate 12 Blood Pressure [Left Arm] 85/69 Pulse Ox 96 Oxygen Delivery Method Room Air Height 5 ft 0.5 in Weight 135 lb - General General Appearance: No Acute Distress, Cooperative - Head Head Exam: Normal Inspection, Normocephalic, Atraumatic - Eye Eye Exam: POSITIVE: No Scleral Icterus - ENT ENT Exam: POSITIVE: Mucous Membranes Moist - Neck Neck Exam: Normal Inspection, No Tenderness, No Lymphadenopathy, No Thyromegaly, JVP is not Raised - Respiratory Respiratory Exam: POSITIVE: Clear to Auscultation - Bilaterally, Breathing Non Labored, Normal to Percussion and Palpation - Cardiovascular Cardiovascular Exam: POSITIVE: RRR, No Murmur, No Clicks, No Gallops, No Rubs, No JVD - GI/Abdominal GI/Abdominal Exam: POSITIVE: Normal Bowel Sounds, Non Tender (The patient may have had mild tenderness with palpation but really does not localize it very well at all.), Non Distended, Soft - Rectal Rectal Exam: POSITIVE: Deferred (This was done in the emergency room I am told by the patient's son.) - External Exam: POSITIVE: Deferred Exam: POSITIVE: Deferred - Extremities Extremities Exam: POSITIVE: No Clubbing Present, No Edema Present, No Cyanosis Present - Back Back Exam: POSITIVE: No CVA Tenderness - Neurological Neurological Exam: POSITIVE: Alert, No Facial Droop, Speech Intact / Clear, Mov es All Extremities Equally, Altered (Oriented to person. Confused about place, time, and situation) - Psychiatric Psychiatric Exam: POSITIVE: Normal Affect, Normal Mood - Integumentary Integumentary Exam: POSITIVE: Normal Color, Warm, Dry, Intact Results - Labs CBC and BMP: 03/21/18 14:20 03/21/18 14:20 Additional Lab Results: Laboratory Results 03/21/18 03/21/18 03/21/18 14:20 14:20 14:20 WBC 8.73 RBC 4.31 Hgb 8.9 L Hct 30.3 L MCV 70.3 L MCH 20.6 L MCHC 29.4 L RDW Std Deviation 45.7 RDW Coeff of Nanda 18.4 H Plt Count 307 MPV 9.0 Immature Gran % (Auto) 0.2 Neut % (Auto) 66.7 Lymph % (Auto) 21.8 Rogers % (Auto) 7.7 Eos % (Auto) 3.4 Baso % (Auto) 0.2 Immature Gran # (Auto) 0.02 Neut # (Auto) 5.82 Lymph # (Auto) 1.90 Rogers # (Auto) 0.67 Eos # (Auto) 0.30 Baso # (Auto) 0.02 WBC Morphology Comment Normal morphology Plt Morphology Comment Normal morphology RBC Morph Comment Normal morphology Sodium Potassium Chloride Carbon Dioxide Anion Gap BUN Creatinine BUN/Creatinine Ratio Glucose Calculated Osmolality Lactic Acid 1.1 Calcium Magnesium 2.3 Total Bilirubin AST ALT Alkaline Phosphatase C-Reactive Protein 1.7 H Total Protein Albumin Globulin Albumin/Globulin Ratio TSH Ur Collection Type Urine Color Urine Clarity Urine pH Ur Specific [place] U Specif Grav (Refrac) Urine Protein Urine Glucose (UA) Urine Ketones Urine Occult Blood Urine Nitrate Urine Bilirubin Urine Urobilinogen Ur Leukocyte Esterase Ur Culture Indicated? Blood Type Antibody Screen Crossmatch 03/21/18 03/21/18 03/21/18 14:20 14:35 15:15 WBC RBC Hgb Hct MCV MCH MCHC RDW Std Deviation RDW Coeff of Nanda Plt Count MPV Immature Gran % (Auto) Neut % (Auto) Lymph % (Auto) Rogers % (Auto) Eos % (Auto) Baso % (Auto) Immature Gran # (Auto) Neut # (Auto) Lymph # (Auto) Rogers # (Auto) Eos # (Auto) Baso # (Auto) WBC Morphology Comment Plt Morphology Comment RBC Morph Comment Sodium 138 Potassium 3.5 L Chloride 107 Carbon Dioxide 21 L Anion Gap 10 BUN 14 Creatinine 0.8 BUN/Creatinine Ratio 17.50 Glucose 101 Calculated Osmolality 286.0 Lactic Acid Calcium 8.1 L Magnesium Total Bilirubin 0.8 AST 17 ALT 15 Alkaline Phosphatase 75 C-Reactive Protein Total Protein 6.0 L Albumin 3.5 Globulin 2.5 Albumin/Globulin Ratio 1.40 TSH 1.24 Ur Collection Type Voided specimen Urine Color Yellow Urine Clarity Clear Urine pH 5.5 Ur Specific [place] >=1.030 U Specif Grav (Refrac) 1.029 Urine Protein Trace Urine Glucose (UA) Negative Urine Ketones Trace A Urine Occult Blood Negative Urine Nitrate Negative Urine Bilirubin Small Urine Urobilinogen 2.0 Ur Leukocyte Esterase Negative Ur Culture Indicated? Culture not set Blood Type Antibody Screen Crossmatch 03/21/18 15:49 WBC RBC Hgb Hct MCV MCH MCHC RDW Std Deviation RDW Coeff of Nanda Plt Count MPV Immature Gran % (Auto) Neut % (Auto) Lymph % (Auto) Rogers % (Auto) Eos % (Auto) Baso % (Auto) Immature Gran # (Auto) Neut # (Auto) Lymph # (Auto) Rogers # (Auto) Eos # (Auto) Baso # (Auto) WBC Morphology Comment Plt Morphology Comment RBC Morph Comment Sodium Potassium Chloride Carbon Dioxide Anion Gap BUN Creatinine BUN/Creatinine Ratio Glucose Calculated Osmolality Lactic Acid Calcium Magnesium Total Bilirubin AST ALT Alkaline Phosphatase C-Reactive Protein Total Protein Albumin Globulin Albumin/Globulin Ratio TSH Ur Collection Type Urine Color Urine Clarity Urine pH Ur Specific [place] U Specif Grav (Refrac) Urine Protein Urine Glucose (UA) Urine Ketones Urine Occult Blood Urine Nitrate Urine Bilirubin Urine Urobilinogen Ur Leukocyte Esterase Ur Culture Indicated? Blood Type O POSITIVE Antibody Screen Negative Crossmatch See Detail - Imaging Status: Image Reviewed by Me (Chest x-ray is negative on my view. No evidence of pneumonia. CT scan of abdomen and pelvis, I felt that the transverse colon in particular look a little dilated and air-filled, the radiology report was read and there was some stranding in relation to the anastomosis.) Assessment and Plan - Patient Problems (1) Diverticulitis Current Visit: Yes Status: Acute Code(s): K57.92 - Diverticulitis of intestine, part unspecified, without perforation or abscess without bleeding (2) Anemia Current Visit: Yes Status: Acute Code(s): D64.9 - Anemia, unspecified Qualifiers: Anemia type: unspecified type Qualified Code(s): D64.9 - Anemia, unspecified (3) Guaiac + stool Current Visit: Yes Status: Acute Code(s): R19.5 - Other fecal abnormalities (4) Dementia Current Visit: Yes Status: Acute Code(s): F03.90 - Unspecified dementia without behavioral disturbance Qualifiers: Dementia type: Alzheimer's disease Alzheimer's disease onset: late-onset Dementia behavioral disturbance: without behavioral disturbance Qualified Code(s): G30.1 - Alzheimer's disease with late onset; F02.80 - Dementia in other diseases classified elsewhere without behavioral disturbance (5) Adenocarcinoma of sigmoid colon Current Visit: No Status: Acute Code(s): C18.7 - Malignant neoplasm of sigm oid colon (6) Hypotension Current Visit: Yes Status: Acute Code(s): I95.9 - Hypotension, unspecified Qualifiers: Hypotension type: unspecified hypotension type Qualified Code(s): I95.9 - Hypotension, unspecified (7) Fever Current Visit: Yes Status: Acute Code(s): R50.9 - Fever, unspecified Qualifiers: Fever type: due to other condition Qualified Code(s): R50.81 - Fever presenting with conditions classified elsewhere - Assessment / Plan Additional Assessment/Plan Details: Given the constellation of signs and symptoms of fever, hypotension, guaiac positive stool, I wonder about diverticulitis particularly when considering the CT of the abdomen and pelvis results. Spoke with surgery about this and we agreed that it would be best to just consider empirically treating for diverticulitis until the situation further presents itself. We'll start Invanz 1 g IV every 12 hours. IV fluid boluses 2 then 125 MLS per hour. Check CBC again at around 10 PM. I'll hold off on any transfusion until hemoglobin is somewhere around the 6-7 range. She shows no signs of ulcers, is not on anti-inflammatories and is only on Aricept at home. Given this unclarity whether or not the patient is in a GI bleed standpoint, I think it would be worthwhile to go ahead and place her on a Protonix drip until we know better. Surgery plans to potentially prep on Sunday and do colonoscopy on Sunday. Check labs in a.m. Monitor in ICU until hypotension is resolved. If resolved by a.m. May consider transferring out of ICU to floor. Start with clear liquid diet. CODE STATUS is DO NOT RESUSCITATE. Could be recurrence of cancer as well. I spoke to the patient and her son about the plan. Patient's son in particular agrees with the plan and thinks this sounds very reasonable for care.
[2018-03-21] MEDS ORDERED: POTASSIUM CHLORIDE 20 MEQ TAB PO ONE (18:56)
[2018-03-21] MEDS: Ertapenem Inj 1 GM in Sodium Chloride 0.9% 100 ML IV SCH (19:32)
[2018-03-21] MEDS: Sodium Chloride 0.9% 1,000 ML PRIMARY IV SCH (19:32)
[2018-03-21] MEDS: DONEPEZIL 5 MG TABLET PO SCH (21:41)
[2018-03-21] MEDS: HYDROmorphone 2 MG/1 ML IVP PRN (21:44)
[2018-03-21 21:53] LABS: Hemoglobin [HGB] 8.3 g/dL (12.0-16.0); MEAN CORPUSCULAR HEMOGLOBIN 20.8 PG (27-31); MEAN CORPUSCULAR HGB CONC 29.6 g/dL (33-37); MEAN PLATELET VOLUME 9.5 FL (7.4-12.2)
[2018-03-22] MEDS: HYDROmorphone 2 MG/1 ML IVP PRN ×2 (03:57→21:17)
[2018-03-22 05:20] LABS: BASOPHILS # (AUTO) 0.02 10*3/UL; BASOPHILS % (AUTO) 0.3 % (0-1); EOSINOPHILS # (AUTO) 0.19 10*3/UL; EOSINOPHILS % (AUTO) 2.9 % (0-8); Hematocrit [HCT] 26.2 % (37.0-47.0); Hemoglobin [HGB] 7.5 g/dL (12.0-16.0); LYMPHOCYTES # (AUTO) 1.97 10*3/uL; MEAN CORPUSCULAR HEMOGLOBIN 20.4 PG (27-31); MEAN CORPUSCULAR HGB CONC 28.6 g/dL (33-37); MEAN CORPUSCULAR VOLUME 71.4 FL (81-99); MEAN PLATELET VOLUME 9.2 FL (7.4-12.2); MONOCYTES % (AUTO) 7.7 % (5-15); NEUTROPHILS # (AUTO) 3.79 10*3/UL; NEUTROPHILS % (AUTO) 58.5 % (50-80); RED BLOOD COUNT 3.67 10^6/uL (4.20-5.40)
[2018-03-22 05:29] LABS: PLATELET MORPHOLOGY COMMENT NORMAL MORPHOLOGY (NORM); RBC MORPHOLOGY COMMENT SEE COMMENTS (NORM); WBC MORPHOLOGY COMMENT NORMAL MORPHOLOGY (NORM)
[2018-03-22 05:32] LABS: BLOOD UREA NITROGEN 7 mg/dL (7-22); BUN/CREATININE RATIO 11.66 (6-20); SERUM ALBUMIN 2.7 g/dL (3.5-4.8)
--- NOTE | 2018-03-22 07:48 | CONSULT ---
Consult Note - Consult Consult Date: 03/22/18 Reason for Consult: PreOp Consulation : General Surgery Requesting Physician: Dr. Gamino Primary Care Provider: MONICA HACKETT - History of Present Illness History of Present Illness: . 77-year-old female been asked to evaluate for anemia. Patient has known history of colon cancer. Because of her dementia it is felt by the family not to do any additional treatment site surgery. She has became just what she calls filling bad. Therefore she came into the hospital. Workup in the emergency room show that she is anemic with hemoglobin 8.6. She had iron deficiency anemia. Patient is guaiac positive stools. Patient was hypotensive in the ER a nd responded to a liter of fluids. Her current hemoglobin 7.6 this a.m. Patient denies any blood in the stools. There is nonimage the nursing staff that she had grossly bloody stools. Patient is a 7 daily bowel movements. There is no nausea vomiting. CT scan shows some nonspecific findings. Past Medical History Medical History: 1. Alzheimer's dementia. 2. History of adenocarcinoma of the sigmoid colon status post resection Surgical History: History of hysterectomy and oophorectomy Family History: Reviewed an Not Pertinent Pertinent Family History: Patient does not recall how her parents passed on. History compromised by dementia Past Social History: Used to smoke, rarely drinks, no drugs. Lives in [place]. 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 Her son is her power of collections attorney. Tobacco Use: Former Smoker In the Past 12 Months, Have Used or Abuse Any of the Following Substance: None Alcohol Use: Rarely Medication / Allergies Home Medications: Home Medications Medication Instructions Recorded Confirmed Type donepezil 5 mg tablet 5 mg PO BID tab 05/14/17 03/21/18 History Allergies/Adverse Reactions: Allergies Allergy/AdvReac Type Severity Reaction Status Date / Time No Known Allergies Allergy Verified 03/21/18 13:41 Results - Labs CBC and BMP: 03/22/18 04:45 03/22/18 04:45 Exam - Vitals Vital Signs: Vital Signs Temperature 97.7 F Temperature Source Temporal Artery Scan Pulse Rate [Pulse Oximeter] 60 Pulse Rate 62 Respiratory Rate 16 Blood Pressure [Right Arm] 113/67 Blood Pressure [Left Arm] 102/78 Blood Pressure 121/75 Pulse Ox 94 Oxygen Flow Rate 1 Oxygen Delivery Method Room Air Height 5 ft 0.5 in Weight 131 lb 9.6 oz - General General Appearance: No Acute Distress, Cooperative - Eye Eye Exam: POSITIVE: PERRL, EOMI - GI/Abdominal GI/Abdominal Exam: POSITIVE: Normal Bowel Sounds, Non Tender, Non Distended, Soft, No Hepatomegaly, No Splenomegaly Assessment and Plan - Patient Problems (1) Anemia Current Visit: Yes Status: Acute Code(s): D64.9 - Anemia, unspecified Qualifiers: Anemia type: unspecified type Qualified Code(s): D64.9 - Anemia, unspecified - Assessment / Plan Additional Assessment/Plan Details: At this point I think the patient does need an EGD and colonoscopy. She needs be medically turned up this weekend. We'll do at first available time early next week. The patient will need a colonoscopy. The risks of the procedure and benefits were discussed with the patient. I have discussed the pathophysiology between polyps and colon cancer. I also discussed the reasons why we use a colonoscopy for screening method versus the other screening methods are available. The patient like to proceed with a colonoscopy, The procedure reset up at first available date. CPT 18906 Would recommend the patient have an EGD. The risk and potential complications of the procedure were discussed with the patient.. They understood this. Also discussed alternatives diagnostic and treatment options. Will get the EGD set up at the first available date. CPT 69209
[2018-03-22] MEDS ORDERED: ACETAMINOPHEN 325 MG TABLET PO ONE (09:08)
[2018-03-22] MEDS ORDERED: Sodium Chloride 0.9% 500 ML PRIMARY IV ONE (09:08)
[2018-03-22] MEDS: Sodium Chloride 0.9% 1,000 ML PRIMARY IV SCH ×2 (09:18→20:23)
[2018-03-22] MEDS: DONEPEZIL 5 MG TABLET PO SCH ×2 (10:03→20:23)
[2018-03-22 15:32] LABS: Hematocrit [HCT] 35.3 % (37.0-47.0); Hemoglobin [HGB] 10.9 g/dL (12.0-16.0); MEAN CORPUSCULAR HEMOGLOBIN 22.6 PG (27-31); MEAN CORPUSCULAR HGB CONC 30.9 g/dL (33-37); MEAN CORPUSCULAR VOLUME 73.1 FL (81-99); MEAN PLATELET VOLUME 9.4 FL (7.4-12.2); RED BLOOD COUNT 4.83 10^6/uL (4.20-5.40)
--- NOTE | 2018-03-22 17:18 | PDOC(PROG) ---
Date of Service: 03/22/18 Time of Service: 17:10 Interval History: no chest pain, no shortness of breath, no nausea or vomiting. RN reported to me that the patient had two bowel movements yesterday with no gross blood in stool. Objective : Data - Labs CBC and BMP: 03/22/18 15:00 03/22/18 04:45 Additional Lab Results: 03/22/18 03/22/18 03/22/18 04:45 04:45 04:45 Hgb 7.5 L Hct 26.2 L Iron TIBC % Saturation Total Bilirubin 0.7 AST 7 L ALT 21 Alkaline Phosphatase 61 Total Protein 4.8 L Albumin 2.7 L Globulin 2.1 L Albumin/Globulin Ratio 1.20 L Vitamin B12 322 Serum Folate 10.9 03/22/18 04:45 Hgb Hct Iron 23 L TIBC 287 % Saturation 8.0 L Total Bilirubin AST ALT Alkaline Phosphatase Total Protein Albumin Globulin Albumin/Globulin Ratio Vitamin B12 Serum Folate Objective : Exam - General General Appearance: No Acute Distress, Cooperative Additional General Exam Details: Vital Signs - Last Taken Temperature 97.7 F 03/22/18 14:12 Pulse Rate 57 L 03/22/18 16:00 Respiratory Rate 16 03/22/18 16:00 Blood Pressure 108/77 03/22/18 16:00 Pulse Ox 93 03/22/18 16:00 - Eye Eye Exam: No Scleral Icterus - ENT ENT Exam: Mucous Membranes Moist - Neck Neck Exam: JVP is not Raised - Respiratory Respiratory Exam: Clear to Auscultation - Bilaterally, Breathing Non Labored - Cardiovascular Cardiovascular Exam: No Murmur, No Clicks, No Gallops, No Rubs, Bradycardia, No JVD - GI/Abdominal GI/Abdominal Exam: Normal Bowel Sounds, Non Tender, Non Distended, Soft - Extremities Extremities Exam: No Clubbing Present, No Edema Present, No Cyanosis Present - Neurological Neurological Exam: Alert, No Facial Droop, Speech Intact / Clear, Moves All Extremities Equally, Altered (oriented to person, not to place, time, or sit uation) - Psychiatric Psychiatric Exam: Normal Affect, Normal Mood Assessment and Plan - Patient Problems (1) Diverticulitis Current Visit: Yes Status: Acute Code(s): K57.92 - Diverticulitis of intestine, part unspecified, without perforation or abscess without bleeding (2) Anemia Current Visit: Yes Status: Acute Code(s): D64.9 - Anemia, unspecified Qualifiers: Anemia type: iron deficiency Iron deficiency anemia type: chronic blood loss Qualified Code(s): D50.0 - Iron deficiency anemia secondary to blood loss (chronic) (3) Guaiac + stool Current Visit: Yes Status: Acute Code(s): R19.5 - Other fecal abnormalities (4) Dementia Current Visit: Yes Status: Acute Code(s): F03.90 - Unspecified dementia without behavioral disturbance Qualifiers: Dementia type: Alzheimer's disease Alzheimer's disease onset: late-onset Dementia behavioral disturbance: without behavioral disturbance Qualified Code(s): G30.1 - Alzheimer's disease with late onset; F02.80 - Dementia in other diseases classified elsewhere without behavioral disturbance (5) Adenocarcinoma of sigmoid colon Current Visit: Yes Status: Acute Code(s): C18.7 - Malignant neoplasm of sigmoid colon (6) Hypotension Current Visit: Yes Status: Acute Code(s): I95.9 - Hypotension, unspecified Qualifiers: Hypotension type: unspecified hypotension type Qualified Code(s): I95.9 - Hypotension, unspecified (7) Fever Current Visit: Yes Status: Acute Code(s): R50.9 - Fever, unspecified Qualifiers: Fever type: due to other condition Qualified Code(s): R50.81 - Fever presenting with conditions classified elsewhere - Assessment / Plan Additional Assessment/Plan Details: fever is resolved, but occasionally having hypotension continue protonix gtt I agree with plan for EGD and colonoscopy--son agreed last night. surgery consult appreciated I had two units PRBC transfused today, and repeat Hb and Hct are improved more than expected, hypotension resolved with transfusion continue invanz empirically, day #2 if any signs of acute bleeding, will call surgery for urgent EGD labs in AM will continue monitoring in the ICU until risk stratification with endoscopy can take place. continue IV fluids clear liquid diet for now. possible prep for colonoscopy on Sunday?
[2018-03-22 20:11] LABS: Hematocrit [HCT] 39.1 % (37.0-47.0); Hemoglobin [HGB] 12.5 g/dL (12.0-16.0); MEAN CORPUSCULAR VOLUME 71.9 FL (81-99); MEAN PLATELET VOLUME 9.5 FL (7.4-12.2); RED BLOOD COUNT 5.44 10^6/uL (4.20-5.40)
[2018-03-22] MEDS: Ertapenem Inj 1 GM in Sodium Chloride 0.9% 100 ML IV SCH (20:23)
[2018-03-23] MEDS: HYDROmorphone 2 MG/1 ML IVP PRN ×2 (02:28→09:00)
[2018-03-23] MEDS: Sodium Chloride 0.9% 1,000 ML PRIMARY IV SCH ×3 (04:11→21:31)
[2018-03-23 04:36] LABS: BASOPHILS # (AUTO) 0.02 10*3/UL; BASOPHILS % (AUTO) 0.2 % (0-1); EOSINOPHILS # (AUTO) 0.21 10*3/UL; EOSINOPHILS % (AUTO) 2.1 % (0-8); Hematocrit [HCT] 37.8 % (37.0-47.0); Hemoglobin [HGB] 11.9 g/dL (12.0-16.0); LYMPHOCYTES # (AUTO) 2.34 10*3/uL; MEAN CORPUSCULAR HEMOGLOBIN 22.6 PG (27-31); MEAN CORPUSCULAR HGB CONC 31.5 g/dL (33-37); MEAN CORPUSCULAR VOLUME 71.7 FL (81-99); MEAN PLATELET VOLUME 9.3 FL (7.4-12.2); MONOCYTES # (AUTO) 0.61 10*3/UL (0.3-0.8); MONOCYTES % (AUTO) 6.2 % (5-15); NEUTROPHILS # (AUTO) 6.58 10*3/UL; NEUTROPHILS % (AUTO) 67.3 % (50-80); RED BLOOD COUNT 5.27 10^6/uL (4.20-5.40)
[2018-03-23 04:40] LABS: PLATELET MORPHOLOGY COMMENT NORMAL MORPHOLOGY (NORM); RBC MORPHOLOGY COMMENT NORMAL MORPHOLOGY (NORM); WBC MORPHOLOGY COMMENT NORMAL MORPHOLOGY (NORM)
[2018-03-23 04:47] LABS: BLOOD UREA NITROGEN 4 mg/dL (7-22); BUN/CREATININE RATIO 6.66 (6-20); SERUM ALBUMIN 3.2 g/dL (3.5-4.8)
[2018-03-23] MEDS ORDERED: POTASSIUM CHLORIDE 20 MEQ TAB PO ONE (07:15)
[2018-03-23] MEDS: CYANOCOBALAMIN (VITAMIN B-12) 1,000 MCG TABLET.ER PO SCH (09:01)
[2018-03-23] MEDS: ACETAMINOPHEN 325 MG TABLET PO PRN ×2 (09:02→15:19)
[2018-03-23] MEDS: DONEPEZIL 5 MG TABLET PO SCH ×2 (09:02→21:30)
[2018-03-23] MEDS ORDERED: Sodium Chloride 0.9% 1,000 ML PRIMARY IV ONE ×2 (10:40→18:34)
--- NOTE | 2018-03-23 11:06 | PDOC(PROG) ---
Interval History: Patient is doing well she has no complaints her dementia is pretty severe. Denies chest pain nausea or vomiting no further active bleeding or brown stools occasional abdominal cramping Objective : Data - Labs CBC and BMP: 03/23/18 04:00 03/23/18 04:00 Objective : Exam - General General Appearance: Cooperative - Respiratory Respiratory Exam: Clear to Auscultation - Bilaterally, Breathing Non Labored, Normal To Percussion, Normal to Percussion and Palpation - Cardiovascular Cardiovascular Exam: RRR, No Murmur, No Clicks, No Gallops, No Rubs, PMI Non- Displaced - GI/Abdominal GI/Abdominal Exam: Normal Bowel Sounds, Non Tender, Non Distended, Soft, No Masses, No Hepatomegaly, No Splenomegaly, No Organomegaly - Extremities Extremities Exam: No Clubbing Present, No Edema Present Assessment and Plan - Patient Problems (1) Adenocarcinoma of sigmoid colon Current Visit: Yes Status: Acute Code(s): C18.7 - Malignant neoplasm of sigmoid colon (2) Anemia Current Visit: Yes Status: Acute Code(s): D64.9 - Anemia, unspecified Qualifiers: Anemia type: iron deficiency Iron deficiency anemia type: chronic blood loss Qualified Code(s): D50.0 - Iron deficiency anemia secondary to blood loss (chronic) (3) Guaiac + stool Current Visit: Yes Status: Acute Code(s): R19.5 - Other fecal abnormalities (4) Dementia Current Visit: Yes Status: Acute Code(s): F03.90 - Unspecified dementia without behavioral disturbance Qualifiers: Dementia type: Alzheimer's disease Alzheimer's disease onset: late-onset Dementia behavioral disturbance: without behavioral disturbance Qualified Code(s): G30.1 - Alzheimer's disease with late onset; F02.80 - Dementia in other diseases classified elsewhere without behavioral disturbance (5) Hypotension Current Visit: Yes Status: Acute Code(s): I95.9 - Hypotension, unspecified Qualifiers: Hypotension type: unspecified hypotension type Qualified Code(s): I95.9 - Hypotension, unspecified (6) Fever Current Visit: Yes Status: Acute Code(s): R50.9 - Fever, unspecified Qualifiers: Fever type: due to other condition Qualified Code(s): R50.81 - Fever presenting with conditions classified elsewhere (7) Diverticulitis Current Visit: Yes Status: Acute Code(s): K57.92 - Diverticulitis of intestine, part unspecified, without perforation or abscess without bleeding - Assessment / Plan Additional Assessment/Plan Details: #1 possible upper and lower GI bleed history of previous adenocarcinoma the colon patient on IV Protonix drip status post 3 units of blood for transfusion with occasional hypotension treated with fluid bolus resuscitation scheduled for EGD colonoscopy on Sunday patient continues to be in the ICU until post the procedures for further risk stratification #2 fever which is now resolved, continue Invanz empirically continue clear liquid diet for now Dr. keven Dye was consult did by Dr. Gamino Discussed with nursing treat pain with 1 mg of morphine every 4 hours when necessary
[2018-03-23] MEDS: MORPHINE SULFATE 2 MG/1 ML IVP PRN ×2 (12:21→15:19)
[2018-03-23 18:49] LABS: Hematocrit [HCT] 36.9 % (37.0-47.0); Hemoglobin [HGB] 11.5 g/dL (12.0-16.0); MEAN CORPUSCULAR HEMOGLOBIN 22.9 PG (27-31); MEAN CORPUSCULAR HGB CONC 31.2 g/dL (33-37); MEAN CORPUSCULAR VOLUME 73.4 FL (81-99); MEAN PLATELET VOLUME 9.2 FL (7.4-12.2); RED BLOOD COUNT 5.03 10^6/uL (4.20-5.40)
[2018-03-23] MEDS: Ertapenem Inj 1 GM in Sodium Chloride 0.9% 100 ML IV SCH (20:10)
[2018-03-24 04:42] LABS: BASOPHILS # (AUTO) 0.02 10*3/UL; BASOPHILS % (AUTO) 0.3 % (0-1); EOSINOPHILS # (AUTO) 0.35 10*3/UL; EOSINOPHILS % (AUTO) 4.9 % (0-8); Hematocrit [HCT] 34.7 % (37.0-47.0); Hemoglobin [HGB] 10.5 g/dL (12.0-16.0); LYMPHOCYTES # (AUTO) 1.79 10*3/uL; MEAN CORPUSCULAR HEMOGLOBIN 22.3 PG (27-31); MEAN CORPUSCULAR HGB CONC 30.3 g/dL (33-37); MEAN CORPUSCULAR VOLUME 73.7 FL (81-99); MEAN PLATELET VOLUME 9.3 FL (7.4-12.2); MONOCYTES # (AUTO) 0.48 10*3/UL (0.3-0.8); MONOCYTES % (AUTO) 6.7 % (5-15); NEUTROPHILS % (AUTO) 62.8 % (50-80); RED BLOOD COUNT 4.71 10^6/uL (4.20-5.40)
[2018-03-24 04:54] LABS: PLATELET MORPHOLOGY COMMENT NORMAL MORPHOLOGY (NORM); RBC MORPHOLOGY COMMENT SEE COMMENTS (NORM); WBC MORPHOLOGY COMMENT NORMAL MORPHOLOGY (NORM)
[2018-03-24 04:57] LABS: SERUM ALBUMIN 2.5 g/dL (3.5-4.8)
[2018-03-24 05:01] LABS: BLOOD UREA NITROGEN 2 mg/dL (7-22); BUN/CREATININE RATIO 3.33 (6-20)
[2018-03-24] MEDS: Sodium Chloride 0.9% 1,000 ML PRIMARY IV SCH ×2 (07:27→17:01)
[2018-03-24] MEDS: MORPHINE SULFATE 2 MG/1 ML IVP PRN ×2 (08:31→12:21)
[2018-03-24] MEDS: DONEPEZIL 5 MG TABLET PO SCH ×2 (08:32→20:20)
[2018-03-24] MEDS: CYANOCOBALAMIN (VITAMIN B-12) 1,000 MCG TABLET.ER PO SCH (08:32)
[2018-03-24] MEDS ORDERED: LIDOCAINE W/ SODIUM BICARB 0.5 ML SYR SUBD PRN (09:42)
[2018-03-24] MEDS ORDERED: [UNRECOGNIZED DRUG - OTHER] IV ONE ×5 (10:01)
[2018-03-24] MEDS ORDERED: KCL IV ONE ×5 (10:01)
[2018-03-24] MEDS ORDERED: NS IV ONE ×5 (10:01)
[2018-03-24] MEDS ORDERED: MAGNESIUM SULFATE IV ONE ×5 (10:01)
--- NOTE | 2018-03-24 10:04 | PDOC(PROG) ---
Interval History: Patient has no complaints has severe dementia no chest pain nausea or vomiting no active bleeding Objective : Data - Labs CBC and BMP: 03/24/18 04:15 03/24/18 04:15 Objective : Exam - General General Appearance: Cooperative - Respiratory Respiratory Exam: Clear to Auscultation - Bilaterally, Breathing Non Labored, Normal To Percussion, Normal to Percussion and Palpation - Cardiovascular Cardiovascular Exam: RRR, No Murmur, No Clicks, No Gallops, No Rubs, PMI Non- Displaced - GI/Abdominal GI/Abdominal Exam: Normal Bowel Sounds, Non Tender, Non Distended, Soft, No Masses, No Hepatomegaly, No Splenomegaly, No Organomegaly - Extremities Extremities Exam: No Clubbing Present, No Edema Present, No Cyanosis Present Assessment and Plan - Patient Problems (1) Adenocarcinoma of sigmoid colon Current Visit: Yes Status: Acute Code(s): C18.7 - Malignant neoplasm of sigmoid colon (2) Anemia Current Visit: Yes Status: Acute Code(s): D64.9 - Anemia, unspecified Qualifiers: Anemia type: iron deficiency Iron deficiency anemia type: chronic blood loss Qualified Code(s): D50.0 - Iron deficiency anemia secondary to blood loss (chronic) (3) Guaiac + stool Current Visit: Yes Status: Acute Code(s): R19.5 - Other fecal abnormalities (4) Dementia Current Visit: Yes Status: Acute Code(s): F03.90 - Unspecified dementia without behavioral disturbance Qualifiers: Dementia type: Alzheimer's disease Alzheimer's disease onset: late-onset Dementia behavioral disturbance: without behavioral disturbance Qualified Code(s): G30.1 - Alzheimer's disease with late onset; F02.80 - Dementia in other diseases classified elsewhere without behavioral disturbance (5) Hypotension Current Visit: Yes Status: Acute Code(s): I95.9 - Hypotension, unspecified Qualifiers: Hypotension type: unspecified hypotension type Qualified Code(s): I95.9 - Hypotension, unspecified (6) Fever Current Visit: Yes Status: Acute Code(s): R50.9 - Fever, unspecified Qualifiers: Fever type: due to other condition Qualified Code(s): R50.81 - Fever presenting with conditions classified elsewhere (7) Diverticulitis Current Visit: Yes Status: Acute Code(s): K57.92 - Diverticulitis of intestine, part unspecified, without perforation or abscess without bleeding (8) GI bleed Current Visit: Yes Status: Acute Comment: Stable now on Protonix drip patient received 3 units of blood as being in getting also multiple fluid boluses. Patient will be kept in the ICU until EGD colonoscopy done and re-stratified appropriately we will replace magnesium and potassium with banana bag Code(s): K92.2 - Gastrointestinal hemorrhage, unspecified
[2018-03-24] MEDS: SUPREP BOWEL PREP KIT PO SCH (11:59)
[2018-03-24] MEDS: Lactated Ringers 1,000 ML PRIMARY IV SCH (12:31)
[2018-03-24] MEDS: Ertapenem Inj 1 GM in Sodium Chloride 0.9% 100 ML IV SCH (19:25)
[2018-03-25] MEDS: Sodium Chloride 0.9% 1,000 ML PRIMARY IV SCH ×2 (01:52→10:05)
[2018-03-25 05:11] LABS: Hematocrit [HCT] 32.5 % (37.0-47.0); Hemoglobin [HGB] 9.8 g/dL (12.0-16.0); MEAN CORPUSCULAR HEMOGLOBIN 22.3 PG (27-31); MEAN CORPUSCULAR HGB CONC 30.2 g/dL (33-37); MEAN CORPUSCULAR VOLUME 73.9 FL (81-99); MEAN PLATELET VOLUME 9.6 FL (7.4-12.2); RED BLOOD COUNT 4.4 10^6/uL (4.20-5.40)
[2018-03-25 05:17] LABS: BLOOD UREA NITROGEN 3 mg/dL (7-22); SERUM ALBUMIN 2.5 g/dL (3.5-4.8)
[2018-03-25] MEDS: CYANOCOBALAMIN (VITAMIN B-12) 1,000 MCG TABLET.ER PO SCH (09:45)
[2018-03-25] MEDS ORDERED: Lactated Ringers 1,000 ML PRIMARY IV SCH (09:45)
[2018-03-25] MEDS: DONEPEZIL 5 MG TABLET PO SCH ×2 (09:45→20:40)
[2018-03-25] MEDS: SUPREP BOWEL PREP KIT PO SCH (10:06)
--- NOTE | 2018-03-25 10:33 | PDOC(PROG) ---
Interval History: Patient is doing well no complaints no further bleeding no blood in the stools positive for dementia does not remember anything about yesterday. Objective : Data - Labs CBC and BMP: 03/25/18 04:05 03/25/18 04:05 Objective : Exam - General General Appearance: No Acute Distress, Cooperative - GI/Abdominal GI/Abdominal Exam: Normal Bowel Sounds, Non Tender, Non Distended, Soft, No Masses, No Hepatomegaly, No Splenomegaly, No Organomegaly - Extremities Extremities Exam: No Clubbing Present, No Edema Present, No Cyanosis Present Assessment and Plan - Patient Problems (1) GI bleed Current Visit: Yes Status: Acute Comment: Patient was prepped and is getting scoped today EGD colonoscopy Code(s): K92.2 - Gastrointestinal hemorrhage, unspecified (2) Hypotension Current Visit: Yes Status: Acute Comment: Now resolved with multiple fluid boluses and 3 units of blood Code(s): I95.9 - Hypotension, unspecified Qualifiers: Hypotension type: unspecified hypotension type Qualified Code(s): I95.9 - Hypotension, unspecified (3) Hypokalemia Current Visit: Yes Status: Acute Comment: Being replaced with banana bag will also add IV fluids Code(s): E87.6 - Hypokalemia (4) Anemia Current Visit: Yes Status: Acute Code(s): D64.9 - Anemia, unspecified Qualifiers: Anemia type: iron deficiency Iron deficiency anemia type: chronic blood loss Qualified Code(s): D50.0 - Iron deficiency anemia secondary to blood loss (chronic) (5) Guaiac + stool Current Visit: Yes Status: Acute Code(s): R19.5 - Other fecal abnormalities (6) Dementia Current Visit: Yes Status: Acute Code(s): F03.90 - Unspecified dementia without behavioral disturbance Qualifiers: Dementia type: Alzheimer's disease Alzheimer's disease onset: late-onset Dementia behavioral disturbance: without behavioral disturbance Qualified Code(s): G30.1 - Alzheimer's disease with late onset; F02.80 - Dementia in other diseases classified elsewhere without behavioral disturbance (7) Fever Current Visit: Yes Status: Acute Code(s): R50.9 - Fever, unspecified Qualifiers: Fever type: due to other condition Qualified Code(s): R50.81 - Fever presenting with conditions classified elsewhere (8) Diverticulitis Current Visit: Yes Status: Acute Code(s): K57.92 - Diverticulitis of intestine, part unspecified, without perforation or abscess without bleeding (9) Adenocarcinoma of sigmoid colon Current Visit: Yes Status: Acute Code(s): C18.7 - Malignant neoplasm of sigmoid colon
[2018-03-25] MEDS ORDERED: Lactated Ringers 1,000 ML PRIMARY IV ONE (11:36)
[2018-03-25] MEDS ORDERED: Fleet Enema 133ml RECTAL ONE (11:38)
[2018-03-25] MEDS: Lactated Ringers 1,000 ML PRIMARY IV SCH (12:10)
[2018-03-25] MEDS ORDERED: LIDOCAINE HCL/PF 2% (20 MG/ML) - 5 ML SYRINGE ONE (12:38)
[2018-03-25] MEDS ORDERED: MIDAZOLAM HCL 2 MG/2 ML VIAL ONE (12:38)
[2018-03-25] MEDS ORDERED: LIDOCAINE 2% VISCOUS(20 MG/1 ML) - 15 ML UD CUP PO ONE (12:38)
[2018-03-25] MEDS ORDERED: PROPOFOL 10 MG/1 ML (200 MG/20 ML) VIAL IV ONE (12:38)
[2018-03-25] MEDS ORDERED: fentaNYL Inj 100 MCG/2 ML VIAL ONE (12:39)
--- NOTE | 2018-03-25 13:38 | GEN.OPNOTE ---
EGD / Colonoscopy Report Surgery Date: 03/25/18 Preoperative Diagnosis: Iron deficiency anemia Postoperative Diagnosis: Recurrent colon cancer Procedure: Colonoscopy with snare polypectomy. EGD Surgeon: Nacho Pruitt MD Anesthesia Provider: Elba Shankar CRNA Anesthesia Type: MAC Indications: Iron deficiency anemia EGD Findings: Esophagus: Scope was inserted into the posterior pharynx and guided esophagus and normal visualization. Patient on prednisone esophagus GE Junction : Fundus : Scope retroflexed on itself revealing normal fundus Body : Prepyloric area was normal along with the body the stomach within normal Prepyloric : Small Intestine : First and second portion of the duodenum normal A lubricated flexible upper endoscope was inserted and passed through the esop hagus and stomach into the duodenum. Colonsocopy Findings: Prep : Very good Cecum : Scope advanced all way to the cecum. She had a small sessile polyp seen in the cecum easily removed snare polypectomy Ascending : Ascending colon normal Transverse : Transverse: Normal Sigmoid : Descending colon was normal except at the anastomosis where she had recurrent cancer biopsy taken Rectum : Cancer Digital Rectal Exam : A lubricated flexible colonoscope was inserted and passed to the blind end of the cecum. Endoscopy Procedures - Endoscopy Procedures Primary Endoscopy Procedure: 98958 : Colonoscopy w/Polyp Removal Secondary Endoscopy Procedure: 29594 : EGD, Diagonstic
--- NOTE | 2018-03-25 13:58 | CRNA.PROGR ---
Anesthesia Time - Procedure/Recovery Time Start Date: 03/25/18 Anesthesia : Time In: 12:58 Anesthesia : Time Out: 13:31 - Other Weight: 59.466 kg Height: 5 ft 0.5 in Body Mass Index (BMI): 25.2 Physical Status: P3 Anesthesia Type: MAC (inpatient)
[2018-03-25] MEDS ORDERED: SUPREP BOWEL PREP KIT PO SCH (15:33)
[2018-03-25] MEDS ORDERED: MORPHINE SULFATE 2 MG/1 ML IVP PRN (15:33)
[2018-03-25] MEDS ORDERED: ACETAMINOPHEN 325 MG TABLET PO PRN (15:33)
[2018-03-25] MEDS ORDERED: LIDOCAINE W/ SODIUM BICARB 0.5 ML SYR SUBD PRN ×2 (15:33)
[2018-03-25] MEDS ORDERED: ONDANSETRON 4 MG/2 ML VIAL IV PRN (15:33)
[2018-03-25] MEDS: POTASSIUM CHLORIDE 20 MEQ TAB PO SCH (21:58)
[2018-03-26 04:47] LABS: BASOPHILS # (AUTO) 0.02 10*3/UL; BASOPHILS % (AUTO) 0.3 % (0-1); EOSINOPHILS # (AUTO) 0.46 10*3/UL; EOSINOPHILS % (AUTO) 7.2 % (0-8); Hematocrit [HCT] 33.9 % (37.0-47.0); Hemoglobin [HGB] 10.3 g/dL (12.0-16.0); LYMPHOCYTES # (AUTO) 2.02 10*3/uL; MEAN CORPUSCULAR HEMOGLOBIN 22.5 PG (27-31); MEAN CORPUSCULAR HGB CONC 30.4 g/dL (33-37); MEAN CORPUSCULAR VOLUME 74.2 FL (81-99); MEAN PLATELET VOLUME 9.9 FL (7.4-12.2); MONOCYTES # (AUTO) 0.36 10*3/UL (0.3-0.8); MONOCYTES % (AUTO) 5.6 % (5-15); NEUTROPHILS # (AUTO) 3.51 10*3/UL; RED BLOOD COUNT 4.57 10^6/uL (4.20-5.40)
[2018-03-26 04:57] LABS: BLOOD UREA NITROGEN 3 mg/dL (7-22); SERUM ALBUMIN 2.8 g/dL (3.5-4.8)
[2018-03-26 05:00] VITALS: RESP 16
[2018-03-26 05:21] LABS: PLATELET MORPHOLOGY COMMENT NORMAL MORPHOLOGY (NORM); RBC MORPHOLOGY COMMENT SEE COMMENTS (NORM); WBC MORPHOLOGY COMMENT NORMAL MORPHOLOGY (NORM)
[2018-03-26 06:27] VITALS: BP 152/58; TEMP 97.1; O2SAT 97
--- NOTE | 2018-03-26 08:57 | PDOC(PROG) ---
Date of Service: 03/26/18 Time of Service: 08:56 Interval History: Patient states that she really doesn't want to do anything at this time. Objective : Data - Labs CBC and BMP: 03/26/18 04:11 03/26/18 04:11 - Vital Signs Vital Signs and I&O: Vital Signs - Last Taken Temperature 97.1 F 03/26/18 06:20 Pulse Rate 76 03/26/18 07:00 Respiratory Rate 16 03/26/18 06:20 Blood Pressure 152/58 03/26/18 06:20 Pulse Ox 97 03/26/18 06:29 Intake and Output (24hr x 4 totals) 03/24/18 03/25/18 03/26/18 03/27/18 05:59 05:59 05:59 05:59 Intake Total 5449 / 5449 4539 / 4539 2458 / 2458 380 / 380 Output Total 1701 / 1701 1350 / 1350 1676 / 1676 800 / 800 Balance 3748 / 3748 3189 / 3189 782 / 782 -420 / -420 Objective : Exam - General General Appearance: No Acute Distress, Cooperative Assessment and Plan - Patient Problems (1) Anemia Current Visit: Yes Status: Acute Code(s): D64.9 - Anemia, unspecified Qualifiers: Anemia type: iron deficiency Iron deficiency anemia type: chronic blood loss Qualified Code(s): D50.0 - Iron deficiency anemia secondary to blood loss (chronic) - Assessment / Plan Additional Assessment/Plan Details: I talked to her about her options which includes radiation surgery earlier do nothing. She does agree to at least talk to the radiation oncologist. We'll set up an appointment to see Dr. Diaz
[2018-03-26] MEDS ORDERED: CYANOCOBALAMIN (VITAMIN B-12) 1,000 MCG TABLET.ER PO SCH (09:00)
[2018-03-26] MEDS: POTASSIUM CHLORIDE 20 MEQ TAB PO SCH (09:02)
[2018-03-26] MEDS: DONEPEZIL 5 MG TABLET PO SCH (09:02)
--- NOTE | 2018-03-26 10:09 | DCSUMMARY ---
Hospitalization Summary Hospital Course: Final Discharge Diagnosis: Current Visit Problems Problem Status Onset Code Anemia Acute D64.9 Guaiac + stool Acute R19.5 Dementia Acute F03.90 Hypotension Acute I95.9 Fever Acute R50.9 Diverticulitis Acute K57.92 GI bleed Acute K92.2 Hypokalemia Acute E87.6 Cancer of sigmoid colon Acute C18.7 History of dementia Chronic Z86.59 Adenocarcinoma of sigmoid colon Acute C18.7 Diagnostic Data, Laboratory Data, and Procedures of Signifigance: Laboratory Results 03/26/18 03/26/18 03/26/18 04:11 04:11 04:11 WBC 6.39 RBC 4.57 Hgb 10.3 L Hct 33.9 L MCV 74.2 L MCH 22.5 L MCHC 30.4 L RDW Std Deviation 52.3 H RDW Coeff of Nanda 20.5 H Plt Count 278 MPV 9.9 Immature Gran % (Auto) 0.3 Neut % (Auto) 55.0 Lymph % (Auto) 31.6 [place] % (Auto) 5.6 Eos % (Auto) 7.2 Baso % (Auto) 0.3 Immature Gran # (Auto) 0.02 Neut # (Auto) 3.51 Lymph # (Auto) 2.02 [place] # (Auto) 0.36 Eos # (Auto) 0.46 Baso # (Auto) 0.02 WBC Morphology Comment Normal morphology Plt Morphology Comment Normal morphology RBC Morph Comment See comments Sodium 140 Potassium 4.2 Chloride 114 H Carbon Dioxide 21 L Anion Gap 5 BUN 3 L Creatinine 0.6 BUN/Creatinine Ratio 5.00 L Glucose 88 Calculated Osmolality 285.0 Lactic Acid 0.6 L Calcium 8.0 L Total Bilirubin 0.8 AST 15 ALT 25 Alkaline Phosphatase 65 Total Protein 5.1 L Albumin 2.8 L Globulin 2.3 L Albumin/Globulin Ratio 1.20 L History and Physical pertinent to Admission: Past Medical History Medical History: 1. Alzheimer's dementia. 2. History of adenocarcinoma of the sigmoid colon status post resection Surgical History: History of hysterectomy and oophorectomy Family History: Reviewed an Not Pertinent Pertinent Family History: Patient does not recall how her parents passed on. History compromised by dementia Past Social History: Used to smoke, rarely drinks, no drugs. Lives in [place]. 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 Course of Hospitalization: This very nice 77-year-old female with advanced dementia is brought in by her son from [facility] where she resides at an assisted living place' she had some anemia that was discovered on routine blood work was brought to the emergency room and was found to be hypotensive and anemic she was transfused with 3 units of blood and multiple fluid the boluses with potassium and magnesium replacement ultimately stabilized. Dr. keven Dye performed EGD colonoscopy. The patient had a history of colon cancer which was resected in the past but did not opt for any radiation or chemotherapy. Colonoscopy results show recurrent colon CA Dr. keven Dye general surgery talked to the patient and the son at this point in time they plan not to do any further therapy but agreed to talk to the oncologist in [place] he will make this follow-up with Dr. Esposito she is in good spirits today has no complaints son and friend are in the room the to take her home custody case with nursing and Dr. keven Dye On the date of discharge, the patient was examined: Gen.: No acute distress, alert, nontoxic Heart: Regular rate and rhythm, no murmurs, clicks, gallops, or rubs Lungs: Clear to auscultation bilaterally, breathing is nonlabored Abdomen/GI: Normal tones on auscultation, soft, nontender, nondistended Musculoskeletal/extremities: No clubbing, cyanosis, or edema Vitals reviewed and are listed below Vital Signs (24 hrs) 03/25/18 11:00 03/25/18 12:18 03/25/18 13:32 Temperature 98.9 F 97.9 F Pulse Rate 65 83 55 L Pulse Rate [Pulse Oximeter] Respiratory Rate 16 16 Blood Pressure 152/106 87/49 Blood Pressure [Right Arm] Pulse Ox 95 95 100 03/25/18 13:47 03/25/18 14:00 03/25/18 14:02 Temperature 98.1 F Pulse Rate 55 L 58 L Pulse Rate [Pulse Oximeter] 56 L Respiratory Rate 12 16 Blood Pressure 107/58 107/81 Blood Pressure [Right Arm] Pulse Ox 100 97 03/25/18 15:00 03/25/18 16:24 03/25/18 19:00 Temperature 97.8 F Pulse Rate 58 L 55 L Pulse Rate [Pulse Oximeter] 56 L Respiratory Rate 12 Blood Pressure Blood Pressure [Right Arm] 141/92 Pulse Ox 94 96 92 03/25/18 20:50 03/25/18 23:00 03/26/18 01:25 Temperature 97.9 F 98 F Pulse Rate 63 Pulse Rate [Pulse Oximeter] 68 76 Respiratory Rate 18 19 Blood Pressure Blood Pressure [Right Arm] 134/86 125/82 Pulse Ox 92 93 94 03/26/18 02:43 03/26/18 03:00 03/26/18 04:59 Temperature 97.2 F Pulse Rate 56 L Pulse Rate [Pulse Oximeter] 58 L Respiratory Rate 16 Blood Pressure Blood Pressure [Right Arm] 113/88 Pulse Ox 94 96 03/26/18 06:20 03/26/18 06:29 03/26/18 07:00 Temperature 97.1 F Pulse Rate 83 Pulse Rate [Pulse Oximeter] 76 76 Respiratory Rate 16 Blood Pressure Blood Pressure [Right Arm] 152/58 Pulse Ox 97 97 Assessment and Plan: 1. As per discharge assessments above 2. Disposition: Home 3. Condition on discharge, stable and improved. 4. Diet: regular diet 5. Activities: resume normal activities 6. Follow-Up: 1. PCP Dr. Grayson 2. Active keven Dye will arrange appointment with Dr. Diaz oncology 7. Medications at the Time of Discharge: Home Medications Medication Instructions Recorded Confirmed Type donepezil 5 mg tablet 5 mg PO BID tab 05/14/17 03/21/18 History Cyanocobalamin (Vitamin B-12) 1,000 mcg PO DAILY tablet.er 03/26/18 Rx [Vitamin B-12] 8. Time, care, counseling and coordination of care for this discharge is greater than 30 minutes. Exam - Vitals Vital Signs: Vital Signs Temperature 97.1 F Temperature Source Temporal Artery Scan Pulse Rate [Apical] 56 Pulse Rate [Telemetry] 65 Pulse Rate [Pulse Oximeter] 76 Pulse Rate 83 Respiratory Rate 16 Blood Pressure [Right Arm] 152/58 Blood Pressure [Left Arm] 135/86 Blood Pressure 107/81 Pulse Ox 97 Oxygen Flow Rate RA Oxygen Delivery Method Room Air Height 5 ft 0.5 in Weight 128 lb 9.6 oz Patient Problems - Patient Problem List (1) GI bleed Current Visit: Yes Status: Acute Code(s): K92.2 - Gastrointestinal hemorrhage, unspecified Category: Medical (2) Hypotension Current Visit: Yes Status: Acute Code(s): I95.9 - Hypotension, unspecified Qualifiers: Hypotension type: unspecified hypotension type Qualified Code(s): I95.9 - Hypotension, unspecified Category: Medical (3) Hypokalemia Current Visit: Yes Status: Acute Code(s): E87.6 - Hypokalemia Category: Medical (4) Anemia Current Visit: Yes Status: Acute Code(s): D64.9 - Anemia, unspecified Qualifiers: Anemia type: iron deficiency Iron deficiency anemia type: chronic blood l oss Qualified Code(s): D50.0 - Iron deficiency anemia secondary to blood loss (chronic) Category: Medical (5) Guaiac + stool Current Visit: Yes Status: Acute Code(s): R19.5 - Other fecal abnormalities Category: Medical (6) Dementia Current Visit: Yes Status: Acute Code(s): F03.90 - Unspecified dementia without behavioral disturbance Qualifiers: Dementia type: Alzheimer's disease Alzheimer's disease onset: late-onset Dementia behavioral disturbance: without behavioral disturbance Qualified Code(s): G30.1 - Alzheimer's disease with late onset; F02.80 - Dementia in other diseases classified elsewhere without behavioral disturbance Category: Medical (7) Fever Current Visit: Yes Status: Acute Code(s): R50.9 - Fever, unspecified Qualifiers: Fever type: due to other condition Qualified Code(s): R50.81 - Fever presenting with conditions classified elsewhere Category: Medical (8) Diverticulitis Current Visit: Yes Status: Acute Code(s): K57.92 - Diverticulitis of intestine, part unspecified, without perforation or abscess without bleeding Category: Medical (9) Adenocarcinoma of sigmoid colon Current Visit: Yes Status: Acute Code(s): C18.7 - Malignant neoplasm of sigmoid colon Category: Medical
== END 2018-03-26 10:13 | disposition home or self-care (01) | DRG 375 ==
LOC: ER 12:42 → ICU 18:03 → OPS 03-25 12:45 → ICU 03-25 14:21 → MED/SURG 03-25 14:35
PROVIDERS: ADMIT Family Medicine; ATTEND Internal Medicine